=== PATIENT | male | born 1975 | race Caucasian/White ===

== ENCOUNTER 2018-09-27 09:22 | Outpatient (REF) | payer BC, SELFPAY ==
[2018-09-27 13:35] LABS: Anion Gap 8.2 mmol/L (3-11); BUN 18 mg/dL (7-18); CO2 27.8 mmol/L (21.0-32.0); CREATININE 0.94 mg/dL (0.70-1.30); Calcium 8.9 mg/dL (8.5-10.1); Chloride 103 mmol/L (98-107); Glucose 115 mg/dL (70-100); Potassium 4.8 mmol/L (3.5-5.1); Sodium 139 mmol/L (136-145)
== END 2018-09-27 09:42 ==
LOC: NCHCN 09:22
PROVIDERS: PCP Internal Medicine; Visit Provider Internal Medicine
DX: E87.5 Hyperkalemia (principal)
CPT/HCPCS: 80048

== ENCOUNTER 2019-04-10 22:14 | Outpatient (REF) | payer BC, SELFPAY ==
[2019-04-10 21:49] LABS: Abs Immature Grans 0.01 k/cumm (0.0-0.09); Absolute Basophil Count 0.03 k/cumm (0.0-0.2); Absolute Eosinophil Count 0.18 k/cumm (0.0-0.7); Absolute Lymphocyte Count 2.09 k/cumm (1.2-3.4); Absolute Monocyte Count 0.58 k/cumm (0.11-0.7); Absolute Neutrophil Count 3.78 k/cumm (1.2-6.7); Basophils % 0.4; Eosinophils % 2.7; HCT 47.5 % (40.0-50.0); HGB 16.1 g/dL (13.5-17.5); Immature Grans % 0.1; Lymphocytes % 31.3; Mean Corp. HGB Concentration 33.9 g/dL (32.0-36.0); Mean Corpuscular Hemoglobin 30.9 pg (27.0-33.0); Mean Corpuscular Volume 91.2 fL (80-95); Mean Platelet Volume 10.8 fL (8.0-11.0); Monocytes % 8.7; Neutrophils % 56.8; Platelet Count 215 x1000/uL (130-400); RBC 5.21 m/cumm (4.50-6.00); RBC Distribution Width 12.6 % (11.8-14.1); White Blood Cell Count 6.67 k/cumm (4.4-10.8)
[2019-04-10 22:27] LABS: ALT 58 U/L (12-78); AST 25 U/L (15-37); Albumin 4.1 g/dL (3.4-5.0); Alkaline Phosphatase 63 U/L (46-116); Anion Gap 10.2 mmol/L (3-11); BUN 15 mg/dL (7-18); Bilirubin, Total 0.8 mg/dL (0.2-1.0); CO2 24.8 mmol/L (21.0-32.0); CREATININE 0.91 mg/dL (0.70-1.30); Calcium 9.2 mg/dL (8.5-10.1); Calculated LDL 130; Chloride 102 mmol/L (98-107); Cholesterol 200 mg/dL (50-200); Glucose 98 mg/dL (70-100); HDL Cholesterol 48 mg/dL (40-60); Magnesium 2.1 mg/dL (1.8-2.4); Potassium 4.8 mmol/L (3.5-5.1); Sodium 137 mmol/L (136-145); TSH (W/Ref FT4) 0.87 uIU/mL (0.358-3.74); Triglyceride 110 mg/dL (30-150)
== END 2019-04-10 22:34 ==
LOC: NCHCN 22:14
PROVIDERS: PCP Internal Medicine; Visit Provider Specialist/Technologist Athletic Trainer
DX: R42 Dizziness and giddiness (principal)
CPT/HCPCS: 80053; 80061; 83721; 83735; 84443; 85025

== ENCOUNTER 2019-07-30 11:36 | Observation (INO) | payer BC, SELFPAY ==
[2019-07-30] VITALS (19 sets, daily range): BP systolic 128–150; BP diastolic 76–95; PULSE 65–88; RESP 12–23; TEMP 36.5–36.9; O2SAT 93–99
--- NOTE | 2019-07-30 11:52 | DI.RAD_ITS ---
EXAM: XR CHEST 2V PA LATERAL INDICATION: chest pain. COMPARISON: CHEST 2 VIEWS PA,LAT from 12/04/2017 TECHNIQUE: 2D digital imaging was performed. FINDINGS: The heart size is normal. The lungs reasonably clear. Infiltrate, or pneumothorax is seen. IMPRESSION: Negative chest x-ray.
[2019-07-30] MEDS: Aspirin 81 MG CHEW 324 MG CH (11:58)
[2019-07-30 12:07] LABS: Abs Immature Grans 0.03 k/cumm (0.0-0.09); Absolute Basophil Count 0.03 k/cumm (0.0-0.2); Absolute Eosinophil Count 0.24 k/cumm (0.0-0.7); Absolute Lymphocyte Count 2.84 k/cumm (1.2-3.4); Absolute Monocyte Count 0.93 k/cumm (0.11-0.7); Absolute Neutrophil Count 5.13 k/cumm (1.2-6.7); Basophils % 0.3; Eosinophils % 2.6; HCT 42.8 % (40.0-50.0); HGB 14.7 g/dL (13.5-17.5); Immature Grans % 0.3; Lymphocytes % 30.9; Mean Corp. HGB Concentration 34.3 g/dL (32.0-36.0); Mean Corpuscular Hemoglobin 31.2 pg (27.0-33.0); Mean Corpuscular Volume 90.9 fL (80-95); Mean Platelet Volume 10.2 fL (8.0-11.0); Monocytes % 10.1; Neutrophils % 55.8; Platelet Count 232 x1000/uL (130-400); RBC 4.71 m/cumm (4.50-6.00); RBC Distribution Width 12.4 % (11.8-14.1)
[2019-07-30 12:25] LABS: ALT 48 U/L (16-63); AST 19 U/L (15-37); Albumin 3.9 g/dL (3.4-5.0); Alkaline Phosphatase 64 U/L (46-116); Anion Gap 9.3 mmol/L (3-11); BUN 17 mg/dL (7-18); Bilirubin, Total 0.7 mg/dL (0.2-1.0); CO2 26.7 mmol/L (21.0-32.0); CREATININE 1.05 mg/dL (0.70-1.30); Calcium 8.3 mg/dL (8.5-10.1); Chloride 102 mmol/L (98-107); Glucose 141 mg/dL (70-100); Magnesium 1.9 mg/dL (1.8-2.4); Sodium 138 mmol/L (136-145); Total Protein 7.2 g/dL (6.4-8.2)
[2019-07-30 12:26] LABS: Troponin I < 0.05 ng/mL (0.00-0.06)
--- NOTE | 2019-07-30 12:52 | W.ED.GENAD ---
Discharge Plan Disposition Patient Disposition: [facility] INPATIENT Condition: Stable Discharge Details Chief Complaint: Chest Pain Clinical Impression: Chest pain, exertional Admit Date/Time: 07/30/19 13:08 Admit Provider: Dorothy Gastelum Attending Provider: Dorothy Gastelum Primary Care Provider: Joselo Vega ED Provider: Rosa Crowley Medical Decision Making <WANDA Baxter - Last Filed: 07/30/19 16:37> 43-year-old man who presents for exertional chest pain associated with dizziness, fatigue and shortness of breath during episodes of chest pain. Patient reports chest pain is relieved at rest. Patient reports 4 days of exertional chest pain reported associated with fatigue recently. Patient was noted to have a new left bundle branch block on his EKG noted by his primary care doctor in the last few months for which he was evaluated in [place] with an echocardiogram. Patient reports there were no abnormalities identified. Records attempting to be obtained from [place]. Patient denies having a recent stress test. Patient does report a significant cardiac family history. Patients father had multiple heart attacks early in life and at age 50. Patient is a personal history of hypertension is on 2 medications and blood pressure is now well controlled. Patient reports a former smoking history. Quit greater than 10 years ago. Denies any drug use. Patient's EKG continues to show a left Bundle branch block without an obvious ischemic pattern. Patient's EKG compared to previous in March and is unchanged. Reviewed with my attending Ken Montoya. Patient's initial troponin negative, initial labs are normal no leukocytosis. Given patient's exertional chest pain and left bundle branch block which is new this year he feels appropriate to admit this patient to the hospital at this time for further evaluation specifically for stress testing. I spoke with the hospitalist Dr. Gastelum who agrees with plan of admission to the hospital. <Ken Montoya MD - Last Filed: 07/30/19 20:56> 13:40 --I saw and evaluate this patient with WANDA Barrett. Please see WANDA Barrett's note regarding ED presentation and course. ECG was reviewed and interpreted by me: Sinus rhythm 84 bpm, left bundle branch block, appropriately disc concordant. Compared to old ECG from 04/10/2019 and patient had left bundle branch block at that time. Initial troponin negative. Agree with concern for ACS, unstable angina plan to admit for further diagnostics and treatment. Patient was given full dose aspirin. WANDA Barrett to admit to Dr. Gastelum. HPI <WANDA Baxter - Last Filed: 07/30/19 16:37> General Date/Time Provider Initiated Documentation: 07/30/19 11:37. HPI Narrative: 43-year-old very pleasant man who presents to the ER this morning after exertional chest pain when moving tires. Patient report for the last 4 days he has noted exertional chest pain at home with activity. Patient reports chest pain does improve at rest. Patient reports associated shortness of breath during episodes of chest pain. Patient reports chest pain approximately 4 out of 10 this morning. Patient reports mild dizziness associated. No palpitations. No vomiting associated. Patient denies abdominal pain or bowel changes. No recent upper respiratory symptoms. Patient denies any obvious chest injury or trauma. Pain is not reproducible with range of motion. No medications prior to arrival. Onset of symptoms 1 hour ago. Worse with exertion improved with rest. Chest pain noted mid anterior chest without radiation to back neck or arm. Related Data Home Medications Medication Instructions Recorded Confirmed metoprolol tartrate 12.5 mg PO BID 12/02/17 07/30/19 sertraline 100 mg PO DAILY 12/02/17 07/30/19 clobetasol 0.05 % topical cream 1 applic TP DAILY gm 12/20/18 07/30/19 clonazepam 0.5 mg tablet 0.5 mg PO PRN tab 12/20/18 07/30/19 spironolactone 25 mg tablet 12.5 mg PO DAILY 12/20/18 07/30/19 Allergies Allergy/AdvReac Type Severity Reaction Status Date / Time No Known Allergies Allergy Unverified 03/13/19 14:23 General Stated Complaint: Chest Pain FLYNN: 3 Review of Systems <WANDA Baxter - Last Filed: 07/30/19 16:37> Review of Systems ROS Unobtainable: All systems reviewed & are unremarkable except as noted in HPI and below Constitutional Constitutional: Denies chills, Reports fatigue, Denies fever(s) and Denies headache(s) ENT Ears, Nose, Mouth, and Throat: Denies headache(s) Cardiovascular Cardiovascular: Reports chest pain, Denies chest pain at rest, Reports chest pain with activity, Denies rapid heart rate, Denies pedal edema and Denies palpitations Respiratory Respiratory: Denies cough and Denies wheezing Gastrointestinal Gastrointestinal: Denies abdominal pain, Denies diarrhea and Denies vomiting Neurologic Neurologic: Denies headache(s) Endocrine Endocrine: Reports fatigue and Denies palpitations Allergic/Immunologic Allergic/Immunologic: Denies wheezing PFSH <WANDA Baxter - Last Filed: 07/30/19 16:37> Medical History HTN (hypertension) (Chronic) Panic disorder (Acute) Venous insufficiency (Acute) Vision loss, 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 Family History (Updated 07/30/19 @ 17:46 by Mery Jesus NP) Father Cancer Agent orange exposure Heart disease Multiple MIs, at age 50 Mother Cancer COPD (chronic obstructive pulmonary disease) Social History Smoking/Tobacco Use Status: Former Tobacco Use Quit Date: 11/22/03 Alcohol Intake: current Alcohol Intake frequency: 0-2 drinks per day Drug use: Never Substance use type: does not use current occupation: [employer] employee Do you feel safe in your relationship?: Yes Exam <WANDA Baxter - Last Filed: 07/30/19 16:37> Narrative Exam Narrative: CONST: Healthy appearing patient, in no acute distress. Well hydrated. Alert and alert. HENMT: Head nomocephalic, normal to inspection. Atraumatic. Hearing grossly normal. EYES: General normal appearance. Alignment normal. Eyelids normal. Conjunctiva normal. NECK: Normal visual inspection. FROM. Trachea midline. No Midline tenderness. CHEST: Normal insepection of the chest. RESP: Normal respiratory effort. Speaking full sentences. No cough. No audible wheezing. No retractions. CARDIO: No JVD. No murmurs or rubs. Regular rhythm MUSCULOSKELETAL: Normal Gait. FROM of all extremities. SKIN: Normal. Dry. No rashes. NEURO: Alert and awake. Speech clear. PSYCH: Normal affect. Cooperative. Course <WANDA Baxter - Last Filed: 07/30/19 16:37> Vital Signs Vital signs: Vital Signs Temperature 36.5 C 07/30/19 11:39 Pulse 88 07/30/19 11:39 Respiratory Rate 16 07/30/19 11:39 Blood Pressure 132/76 07/30/19 11:39 Pulse Oximetry 99 07/30/19 11:39 Temperature 36.5 C 07/30/19 11:39 Pulse 88 07/30/19 11:39 Respiratory Rate 16 07/30/19 11:53 Respiratory Effort Non-Labored 07/30/19 11:53 Respiratory Depth Normal 07/30/19 11:53 Respiratory Pattern Normal 07/30/19 11:53 Blood Pressure 132/76 07/30/19 11:39 Blood Pressure Position Supine 07/30/19 11:39 Pulse Oximetry 99 07/30/19 11:39 Oxygen Delivery Method Room Air 07/30/19 11:39 Oxygen Flow Rate 0 07/30/19 11:39 Pain Level 2 07/30/19 11:39 Lab/Test Results Lab/Test Results: Laboratory Tests Range/Units 07/30/19 07/30/19 11:46 11:46 WBC (4.4-10.8) k/cumm 9.20 RBC (4.50-6.00) m/cumm 4.71 Hgb (13.5-17.5) g/dL 14.7 Hct (40.0-50.0) % 42.8 MCV (80-95) fL 90.9 MCH (27.0-33.0) pg 31.2 MCHC (32.0-36.0) g/dL 34.3 RDW (11.8-14.1) % 12.4 Plt Count (130-400) x1000/uL 232 MPV (8.0-11.0) fL 10.2 Immature Gran % 0.3 Neutrophils % 55.8 Lymphocytes % 30.9 Monocytes % 10.1 Eosinophils % 2.6 Basophils % 0.3 Absolute Neutrophils (1.2-6.7) k/cumm 5.13 Absolute Lymphocytes (1.2-3.4) k/cumm 2.84 Absolute Monocytes (0.11-0.7) k/cumm 0.93 H Absolute Eosinophils (0.0-0.7) k/cumm 0.24 Absolute Basophils (0.0-0.2) k/cumm 0.03 Sodium (136-145) mmol/L 138 Potassium (3.5-5.1) mmol/L 4.0 Chloride (98-107) mmol/L 102 Carbon Dioxide (21.0-32.0) mmol/L 26.7 Anion Gap (3-11) mmol/L 9.3 BUN (7-18) mg/dL 17 Creatinine (0.70-1.30) mg/dL 1.05 Estimated GFR/1.73 m2 (mL/min/1.73m2) >= 60.00 Glucose (70-100) mg/dL 141 H Calcium (8.5-10.1) mg/dL 8.3 L Magnesium (1.8-2.4) mg/dL 1.9 Total Bilirubin (0.2-1.0) mg/dL 0.7 AST (15-37) U/L 19 ALT (16-63) U/L 48 Alkaline Phosphatase (46-116) U/L 64 Troponin I (0.00-0.06) ng/mL < 0.05 Total Protein (6.4-8.2) g/dL 7.2 Albumin (3.4-5.0) g/dL 3.9
--- NOTE | 2019-07-30 13:42 | NUR.NOTE ---
Nursing Note: report given to Ericka OBRIEN
[2019-07-30 13:51] LABS: Bilirubin Negative (Negative); Blood Negative (Negative); Clarity Clear (Clear); Glucose Negative (Negative); Ketones Negative (Negative); Leukocyte Esterase Negative (Negative); Nitrite Negative (Negative); Specific Gravity <= 1.005 (1.005-1.025); Urobilinogen 0.2 EU/dL (Up TO 0.2)
[2019-07-30 13:59] LABS: Hemoglobin A1C 5.7 % (4.5-6.2)
[2019-07-30 14:01] LABS: *AMPHETAMINES SCREEN URINE Negative (Negative); *BARBITURATES SCREEN URINE Negative (Negative); *BENZODIAZEPINES SCREEN URINE Negative (Negative); Cannabinoids THC Negative (Negative); Cocaine Screen,Urine Negative (Negative); METHADONE URINE SCREEN Negative (Negative); OPIATES URINE SCREEN Negative (Negative)
[2019-07-30 14:01] LABS: NT-proBNP 8 pg/mL
[2019-07-30 14:02] LABS: Tricyclic Antidepressants Negative (Negative)
[2019-07-30] MEDS: Enoxaparin 40 MG/0.4 ML SYR SC (14:18)
[2019-07-30] MEDS: Normal Saline 1,000 ML 150 ML IV ×2 (14:19→20:46)
[2019-07-30 15:19] LABS: Troponin I < 0.05 ng/mL (0.00-0.06)
--- NOTE | 2019-07-30 17:31 | HPE_ITS ---
Date of service: 07/30/19 Time of Service: 17:31 Assessment and Plan Assessment and plan (1) Chest pain: Status: Acute Assessment and plan: Exertional chest pain with associated shortness of breath and diaphoresis, relieved with rest. EKG shows LBBB. TTE from [facility] 04/2019 shows bundle branch rhtyhm during exam, LV normal in size, wall motion normal, LVEF 57%, trace mitral regurgitation, trace tricuspid regurgitation. Troponins x2. Concerning family history with father having CT at age 42 with multiple MIs following. Currently chest pain free. Continue to trend troponin. Stress test tomorrow. NPO after midnight. Monitor on telemetry. (2) HTN (hypertension): Status: Chronic Assessment and plan: Continue Metoprolol and aldactone at HS per home regimen. Monitor blood pressure. (3) Panic disorder: Status: Acute Assessment and plan: States only rarely uses klonopin, will order home PRN dose. (4) Discharge planning issues: Status: Acute Assessment and plan: He is in for a stress test tomorrow. Disposition to be determined after stress test. This case was discussed with Dr. Gastelum who is in agreement. History of Present Illness History of Present Illness Chief Complaint: Chest pain with exertion Narrative: Saw Salmeron is a very pleasant 43-year-old man with a past medical history significant for hypertension, also with an approximate [id number] smoking history, quit in 2003. He presented to the emergency department today with chest pain with exertion as well as an associated feeling of dizziness, shortness of breath and diaphoresis. He began having these episodes approximately 4 days ago, the chest pain is only with exertion. The chest pain resolved with rest. He also reports that his father had his first CT at age 42, he went on to have several MIs and at the age of 50, cardiac related. Mr. Salmeron was also recently seen by cardiology after his PCP made note of a new LBBB on EKG. He had an echocardiogram in 04/2019 at [facility] which was reported to him as normal. In the ED, he had an EKG which again noted LBBB, NSR, rate 84 bpm. His troponin was negative x2. He is admitted to the med/surg floor for further evaluation, monitoring on telemetry, trending troponins and stress testing tomorrow. At the time of admission, he also reports that he has been increasingly fatigued over the last 4 days. When he experienced the exertional chest pain, the pain radiated into his left shoulder. He denies nausea or vomiting. He denies any other concerns, no coughing or wheezing, he has been eating and drinking normally. He has otherwise been in his usual state of health. He has had no significant changes or stressors in his life. He quit smoking in 2003 after smoking about 1 ppd x 10 years. He drinks alcohol regularly, he has never had withdrawal. 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 Family History (Updated 07/30/19 @ 17:46 by Mery Jesus NP) Father Cancer Agent orange exposure Heart disease Multiple MIs, at age 50 Mother Cancer COPD (chronic obstructive pulmonary disease) Social History Smoking/Tobacco Use Status: Former Tobacco Use Quit Date: 11/22/03 Alcohol Intake: current Alcohol Intake frequency: 0-2 drinks per day Drug use: Never Substance use type: does not use current occupation: [employer] employee Do you feel safe in your relationship?: Yes Meds Home Medications and Allergies Home Medications Medication Instructions Recorded Confirmed Type metoprolol tartrate 12.5 mg PO BID 12/02/17 07/30/19 History sertraline 100 mg PO DAILY 12/02/17 07/30/19 History clobetasol 0.05 % topical cream 1 applic TP DAILY gm 12/20/18 07/30/19 History clonazepam 0.5 mg tablet 0.5 mg PO PRN tab 12/20/18 07/30/19 History spironolactone 25 mg tablet 12.5 mg PO DAILY 12/20/18 07/30/19 History Allergies Allergy/AdvReac Type Severity Reaction Status Date / Time No Known Allergies Allergy Unverified 03/13/19 14:23 Exam Narrative Exam Narrative: General: Healthy appearing 43 year old man, in NAD. Awake, alert and oriented. HEENT: normocephalic, atraumatic, pupils equal and round, EOMI, mucous membranes moist. Neck: supple, no JVD. Cardiovascular: regular rhythm, nontachycardic, no murmur appreciated. Respiratory: respirations even and unlabored, lung sounds clear bilaterally. GI: abdomen soft, nontender, +bowel sounds x4 quadrants. Extremities: no edema, equal ROM x4 extremities. pedal pulses palpable bilaterally. Results Labs Result diagrams: 07/30/19 11:46 07/30/19 11:46 Labs: Laboratory Results - last 24 hr 07/30/19 07/30/19 07/30/19 11:46 11:46 11:46 WBC 9.20 RBC 4.71 Hgb 14.7 Hct 42.8 MCV 90.9 MCH 31.2 MCHC 34.3 RDW 12.4 Plt Count 232 MPV 10.2 Immature Gran % 0.3 Neutrophils % 55.8 Lymphocytes % 30.9 Monocytes % 10.1 Eosinophils % 2.6 Basophils % 0.3 Absolute Neutrophils 5.13 Absolute Lymphocytes 2.84 Absolute Monocytes 0.93 H Absolute Eosinophils 0.24 Absolute Basophils 0.03 PT INR Sodium 138 Potassium 4.0 Chloride 102 Carbon Dioxide 26.7 Anion Gap 9.3 BUN 17 Creatinine 1.05 Estimated GFR/1.73 m2 >= 60.00 Glucose 141 H Hemoglobin A1c 5.7 Calcium 8.3 L Magnesium 1.9 Total Bilirubin 0.7 AST 19 ALT 48 Alkaline Phosphatase 64 Troponin I < 0.05 NT-Pro-B Natriuret Pep 8 Total Protein 7.2 Albumin 3.9 Urine Color Urine Clarity Urine pH Ur Specific [place] Urine Protein Urine Ketones Urine Blood Urine Nitrite Urine Bilirubin Urine Urobilinogen Ur Leukocyte Esterase Urine Glucose Urine Opiates Screen Urine Methadone Screen Ur Barbiturates Screen Ur Tricyclics Screen Ur Amphetamines Screen U Benzodiazepines Scrn Urine Cocaine Screen Ur THC Screen 07/30/19 07/30/19 07/30/19 13:30 13:30 13:45 WBC RBC Hgb Hct MCV MCH MCHC RDW Plt Count MPV Immature Gran % Neutrophils % Lymphocytes % Monocytes % Eosinophils % Basophils % Absolute Neutrophils Absolute Lymphocytes Absolute Monocytes Absolute Eosinophils Absolute Basophils PT 10.0 INR 1.0 Sodium Potassium Chloride Carbon Dioxide Anion Gap BUN Creatinine Estimated GFR/1.73 m2 Glucose Hemoglobin A1c Calcium Magnesium Total Bilirubin AST ALT Alkaline Phosphatase Troponin I NT-Pro-B Natriuret Pep Total Protein Albumin Urine Color Yellow Urine Clarity Clear Urine pH 6.0 Ur Specific [place] <= 1.005 Urine Protein Negative Urine Ketones Negative Urine Blood Negative Urine Nitrite Negative Urine Bilirubin Negative Urine Urobilinogen 0.2 Ur Leukocyte Esterase Negative Urine Glucose Negative Urine Opiates Screen Negative Urine Methadone Screen Negative Ur Barbiturates Screen Negative Ur Tricyclics Screen Negative Ur Amphetamines Screen Negative U Benzodiazepines Scrn Negative Urine Cocaine Screen Negative Ur THC Screen Negative 07/30/19 14:55 WBC RBC Hgb Hct MCV MCH MCHC RDW Plt Count MPV Immature Gran % Neutrophils % Lymphocytes % Monocytes % Eosinophils % Basophils % Absolute Neutrophils Absolute Lymphocytes Absolute Monocytes Absolute Eosinophils Absolute Basophils PT INR Sodium Potassium Chloride Carbon Dioxide Anion Gap BUN Creatinine Estimated GFR/1.73 m2 Glucose Hemoglobin A1c Calcium Magnesium Total Bilirubin AST ALT Alkaline Phosphatase Troponin I < 0.05 NT-Pro-B Natriuret Pep Total Protein Albumin Urine Color Urine Clarity Urine pH Ur Specific [place] Urine Protein Urine Ketones Urine Blood Urine Nitrite Urine Bilirubin Urine Urobilinogen Ur Leukocyte Esterase Urine Glucose Urine Opiates Screen Urine Methadone Screen Ur Barbiturates Screen Ur Tricyclics Screen Ur Amphetamines Screen U Benzodiazepines Scrn Urine Cocaine Screen Ur THC Screen Last Vital Signs Temp 36.8 C 07/30/19 15:29 Pulse 67 07/30/19 15:45 Resp 18 07/30/19 15:29 BP 133/81 07/30/19 15:29 Pulse Ox 98 07/30/19 15:29
--- NOTE | 2019-07-30 18:45 | NUR.NOTE ---
Nursing Note: Pt to MS floor at 1350. A&Ox3. Independent in room; steady gait noted. Pt oriented to MS floor, call edgar, TV etc. Telemetry. Call edgar within reach. RN will continue to monitor.
[2019-07-30] MEDS: Sertraline 50 MG TAB 100 MG PO (21:18)
[2019-07-30] MEDS: Spironolactone 25 MG TAB 12.5 MG PO (21:18)
[2019-07-30] MEDS: Metoprolol 25 MG TAB PO (21:19)
[2019-07-30 21:45] LABS: Troponin I < 0.05 ng/mL (0.00-0.06)
[2019-07-31] VITALS (10 sets, daily range): BP systolic 140–159; BP diastolic 75–103; PULSE 65–80; RESP 14–18; TEMP 36.6–36.9; O2SAT 94–97
[2019-07-31] MEDS: Normal Saline 1,000 ML 150 ML IV ×2 (03:16→09:48)
[2019-07-31 07:15] LABS: HCT 41.5 % (40.0-50.0); Mean Corp. HGB Concentration 33.7 g/dL (32.0-36.0); Mean Corpuscular Hemoglobin 30.8 pg (27.0-33.0); Mean Corpuscular Volume 91.4 fL (80-95); Platelet Count 210 x1000/uL (130-400); RBC 4.54 m/cumm (4.50-6.00); RBC Distribution Width 12.4 % (11.8-14.1); White Blood Cell Count 6.56 k/cumm (4.4-10.8)
[2019-07-31 07:36] LABS: Anion Gap 6.8 mmol/L (3-11); BUN 13 mg/dL (7-18); CO2 29.2 mmol/L (21.0-32.0); CREATININE 0.96 mg/dL (0.70-1.30); Calcium 7.8 mg/dL (8.5-10.1); Calculated LDL 108 mg/dL; Chloride 107 mmol/L (98-107); Cholesterol 168 mg/dL (50-200); Glucose 104 mg/dL (70-100); HDL Cholesterol 40 mg/dL (40-60); Potassium 4.2 mmol/L (3.5-5.1); Sodium 143 mmol/L (136-145); TSH (W/Ref FT4) 1.26 uIU/mL (0.36-3.74); Triglyceride 102 mg/dL (30-150)
[2019-07-31 08:07] LABS: ESR 11 mm/hr (0-15)
--- NOTE | 2019-07-31 12:30 | DI.US_ITS ---
APPROVED REPORT EXAM: Comprehensive 2D, Doppler, and color-flow Echocardiogram Patient Location: In-Patient Tuberculosis Specialist: LEANN Donohue (AE) Rhythm: LBBB Indications: exertional CP w/ diaphoresis, family hx of early KS Left Ventricle The left ventricle is normal size. The left ventricular systolic function is normal. The left ventric ular ejection fraction is within the normal range. There is normal left ventricular wall thickness. P aradoxical septal motion consistent with conduction abnormality. The left ventricular diastolic funct ion is normal. LVEF is 55-60%. Right Ventricle The right ventricle is normal size. The right ventricular systolic function is normal. Atria The left atrium size is normal. The right atrium size is normal. Aortic Valve The aortic valve is normal in structure. There is no aortic valvular stenosis. No aortic regurgitatio n is present. Mitral Valve There is mitral annular calcification. Valve is mildly thickened No evidence of mitral valve stenosis . There is no mitral valve regurgitation noted. Tricuspid Valve The tricuspid valve is normal in structure. Trace tricuspid regurgitation. Peak gradient =32.5 mmHg Pulmonic Valve The pulmonary valve is normal in structure. Trace pulmonic regurgitation. Great Vessels The aortic root is normal in size. The IVC is normal in size and collapses >50% with inspiration. Pericardium There is no pericardial effusion. 2D Dimensions IVSd 1.3 cm M: 0.6-1.2 LA Volume Index A4C 17.0 mL/m2 PWd 1.1 cm M: 0.6 - 1.2 LA Area A4C 14.0 cm2 LVDd 4.5 cm M: 4.2 - 5.9 LVDs 3.2 cm M: 2.5 - 4.0 Aortic Root 3.5 cm M: 3.1 - 3.7 LVOT 2.0 cm (M/F) 1.5-2.5 LVEF (Duque's) 62.6 % M: 52 - 72 FS 29.2 % LV Diastology E/A Ratio 1.1 MED E' 0.1 (<0.07 m/s) LV E/e MED 8.3 (>14) LAT E' 0.1 (<0.1 m/s) LV E/e LAT 8.5 (>14) Aortic Valve LVOT Peak Anton. 1.7 m/s LVOT Peak Gr. 11.0 mmHg LVOT Mean Gr. 5.8 mmHg LVOT VTI 0.3 m LEANN (VTI) 2.7 (2.5-4.5 cm2) LEANN (VTI) Index 1.3 cm/m2 Mitral Valve MV E Max Anton. 0.8 (0.4-1.3 m/s) MV A Velocity 0.7 (0.4-1.3 m/s) E/A Ratio 1.1 MV Decel. Time 167.0 (160-240 msec) MV PHT 48.3 msec MVA PHT 4.6 cm2 Tricuspid Valve TR P. Velocity 2.9 m/s TR P. Gradient 32.5 mmHg Conclusion Left Ventricle : The left ventricle is normal size. There is normal left ventricular wall thickness. The left ventricular diastolic function is normal. Paradoxical septal motion consistent with conducti on abnormality. LVEF is 55-60%. Right Ventricle : The right ventricle is normal size. The right ventricular systolic function is norm al. Atria : The left atrium size is normal. The right atrium size is normal. Aortic Valve : The aortic valve is normal in structure. There is no aortic valvular stenosis. No aor tic regurgitation is present. Mitral Valve : There is mitral annular calcification. Valve is mildly thickened There is no mitral v alve regurgitation noted. No evidence of mitral valve stenosis. Tricuspid Valve : The tricuspid valve is normal in structure. Trace tricuspid regurgitation. Peak gra dient =32.5 mmHg. RVSP is <40mmHg Pulmonic Valve : The pulmonary valve is normal in structure. Trace pulmonic regurgitation. Great Vessels : The IVC is normal in size and collapses >50% with inspiration. Pericardium : There is no pericardial effusion.
[2019-07-31] MEDS: Enoxaparin 40 MG/0.4 ML SYR SC (14:30)
[2019-07-31] MEDS: Normal Saline Flush 10 ML SYR IVP (14:34)
--- NOTE | 2019-07-31 14:40 | INITIAL_ITS ---
- If Service Date Differs Date of service: 07/31/19 Time of Service: 14:40 Care Management Initial Assess REASON FOR HOSPITALIZATION:: Chest Pain PAST MEDICAL HISTORY/PAST SURGICAL HISTORY:: Medical History. HTN (hypertension) (Chronic). Panic disorder (Acute). Venous insufficiency (Acute). 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 He has a daughter who is in college at [employer] studying to be a dental hygienist, and he is very proud of her. 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 He is very independent at baseline. CURRENT FUNCTIONAL STATUS:: Saw was lying in his bed when CM met with him. He was pleasant and engaged in conversation. He reported that he is waiting for testing today to check his heart. He is agreeable to the plan and anxious to find out what is happening to him, medically. CM will continue to follow. ADVANCE DIRECTIVES:: None on file. Has patient been provided with information about the portal?: Yes Did the patient sign up for the portal?: No CODE STATUS:: Full Code INSURANCE COVERAGE / FINANCIAL ISSUES:: [employer]BS CURRENT HOME/COMMUNITY SERVICES/EQUIPMENT:: No services or equipment at this time. PRIMARY CARE PHYSICIAN:: Joselo Vega POTENTIAL DISCHARGE NEEDS:: Evaluations for further needs, follow up appointments as recommended PATIENT/FAMILY EDUCATION NEEDS:: Review of community based supports, discharge plan, discussion of self care needs upon discharge including Ask Me Three ANTICIPATED BARRIERS TO DISCHARGE:: None identified TRANSPORTATION:: Saw will drive himself as long as he is medically cleared to drive via private vehicle. PLAN:: Anticipate Saw will return home with no additional services when medically cleared. He will have follow up appointments as recommended by MD. He will drive himself as long as he is medically cleared to drive. CM will continue to follow.
--- NOTE | 2019-07-31 15:35 | PGE_ITS ---
Date of Service Date of service: 07/31/19 Time of Service: 15:35 Assessment and Plan Assessment and plan (1) Chest pain: Status: Acute Assessment and plan: Exertional chest pain with associated shortness of breath and diaphoresis, relieved with rest. EKG shows LBBB. TTE from [facility] 04/2019 shows bundle branch rhtyhm during exam, LV normal in size, wall motion normal, LVEF 57%, trace mitral regurgitation, trace tricuspid regurgitation. Repeat echocardiogram pending. Stress testing not available today. Troponins negative x3. Concerning family history with father having UT at age 42 with multiple MIs following. Currently chest pain free. Telemetry showing normal sinus rhythm with a left bundle branch block, rates 60s to 80. Stress test tomorrow. NPO after midnight. Continue to monitor on telemetry. (2) HTN (hypertension): Status: Chronic Assessment and plan: Continue Metoprolol and aldactone at HS per home regimen. Monitor blood pressure. (3) Panic disorder: Status: Acute Assessment and plan: States only rarely uses klonopin, will order home PRN dose. (4) Discharge planning issues: Status: Acute Assessment and plan: He is in for a stress test tomorrow. Disposition to be determined after stress test. This case was discussed with Dr. Gastelum who is in agreement. Subjective Subjective Interval history since last seen: Saw Salmeron denies chest pain since he has been in the hospital. He underwent an echocardiogram today for comparison to his previous echo. Telemetry shows normal sinus rhythm with a left bundle branch block, rates 60s to 80. The results are pending. At this time he denies chest pain/pressure, palpitations, shortness of breath, coughing, wheezing, nausea, vomiting, diarrhea. Given his history of exertional chest pain with shortness of breath and progressing to diaphoresis, in the setting of a family history of early cardiac events, he will remain in the hospital until stress testing is available. He is scheduled to have a stress test tomorrow. Exam Narrative Exam Narrative: General: Healthy appearing 43 year old man, sitting up in the chair in NAD. Awake, alert and oriented. HEENT: normocephalic, atraumatic, pupils equal and round, EOMI, mucous membranes moist. Neck: supple, no JVD. Cardiovascular: regular rhythm, nontachycardic, no murmur appreciated. Respiratory: respirations even and unlabored, lung sounds clear bilaterally. GI: abdomen soft, nontender, +bowel sounds x4 quadrants. Extremities: no edema, equal ROM x4 extremities. pedal pulses palpable bilaterally. Objective Objective Clinical Data: Abnormal lab results 07/31/19 Range/Units 06:40 Glucose 104 H (70-100) mg/dL Calcium 7.8 L (8.5-10.1) mg/dL Vital Signs Temperature 36.9 C 07/31/19 11:20 Temperature Source Tympanic 07/31/19 11:20 Pulse 73 07/31/19 11:20 Pulse Rhythm Regular 07/31/19 08:52 Pulse 80 07/30/19 13:15 Respiratory Rate 16 07/31/19 11:20 Respiratory Effort Non-Labored 07/31/19 08:52 Respiratory Depth Normal 07/31/19 08:52 Respiratory Pattern Normal 07/31/19 08:52 Blood Pressure 154/103 H 07/31/19 11:20 Blood Pressure Mean 95 07/30/19 13:15 Blood Pressure Position Supine 07/30/19 11:39 Pulse Oximetry 97 07/31/19 11:20 Oxygen Delivery Method Room Air 07/31/19 11:20 Oxygen Flow Rate 0 07/31/19 11:20 Pain Level 0 07/31/19 11:20 Comment 07/31/19 07:30 Intake & Output 07/30/19 07/31/19 07/31/19 23:59 11:59 23:59 Intake Total 1757.5 / 1757.5 1954 Balance 1757.5 / 1757.5 1954 Weight 99.79 kg 101.7 kg Intake: IV 967.5 / 967.5 1954 Oral 790 / 790 Other: Urine Color Pale Pale Yellow Urine Appearance Clear Clear Urine Odor None None Comment Pt voiding ad aaron in toilet. Pt denies sx. No hat. Voiding Methods Toilet Toilet Laboratory Results WBC 6.56 k/cumm (4.4-10.8) 07/31/19 06:40 RBC 4.54 m/cumm (4.50-6.00) 07/31/19 06:40 Hgb 14.0 g/dL (13.5-17.5) 07/31/19 06:40 Hct 41.5 % (40.0-50.0) 07/31/19 06:40 MCV 91.4 fL (80-95) 07/31/19 06:40 MCH 30.8 pg (27.0-33.0) 07/31/19 06:40 MCHC 33.7 g/dL (32.0-36.0) 07/31/19 06:40 RDW 12.4 % (11.8-14.1) 07/31/19 06:40 Plt Count 210 x1000/uL (130-400) 07/31/19 06:40 MPV 10.0 fL (8.0-11.0) 07/31/19 06:40 Immature Gran % 0.3 07/30/19 11:46 Neutrophils % 55.8 07/30/19 11:46 Lymphocytes % 30.9 07/30/19 11:46 Monocytes % 10.1 07/30/19 11:46 Eosinophils % 2.6 07/30/19 11:46 Basophils % 0.3 07/30/19 11:46 Absolute Neutrophils 5.13 k/cumm (1.2-6.7) 07/30/19 11:46 Absolute Lymphocytes 2.84 k/cumm (1.2-3.4) 07/30/19 11:46 Absolute Monocytes 0.93 k/cumm (0.11-0.7) H 07/30/19 11:46 Absolute Eosinophils 0.24 k/cumm (0.0-0.7) 07/30/19 11:46 Absolute Basophils 0.03 k/cumm (0.0-0.2) 07/30/19 11:46 ESR 11 mm/hr (0-15) 07/31/19 06:40 PT 10.0 sec (9.3-11.0) 07/30/19 13:45 INR 1.0 (0.9-1.1) 07/30/19 13:45 Sodium 143 mmol/L (136-145) 07/31/19 06:40 Potassium 4.2 mmol/L (3.5-5.1) 07/31/19 06:40 Chloride 107 mmol/L (98-107) 07/31/19 06:40 Carbon Dioxide 29.2 mmol/L (21.0-32.0) 07/31/19 06:40 Anion Gap 6.8 mmol/L (3-11) 07/31/19 06:40 BUN 13 mg/dL (7-18) 07/31/19 06:40 Creatinine 0.96 mg/dL (0.70-1.30) 07/31/19 06:40 Estimated GFR/1.73 m2 >= 60.00 (mL/min/1.73m2) 07/31/19 06:40 Glucose 104 mg/dL (70-100) H 07/31/19 06:40 Hemoglobin A1c 5.7 % (4.5-6.2) 07/30/19 11:46 Calcium 7.8 mg/dL (8.5-10.1) L 07/31/19 06:40 Magnesium 2.0 mg/dL (1.8-2.4) 07/31/19 06:40 Total Bilirubin 0.7 mg/dL (0.2-1.0) 07/30/19 11:46 AST 19 U/L (15-37) 07/30/19 11:46 ALT 48 U/L (16-63) 07/30/19 11:46 Alkaline Phosphatase 64 U/L (46-116) 07/30/19 11:46 Troponin I < 0.05 ng/mL (0.00-0.06) 07/30/19 21:15 NT-Pro-B Natriuret Pep 8 pg/mL (-299) 07/30/19 11:46 Total Protein 7.2 g/dL (6.4-8.2) 07/30/19 11:46 Albumin 3.9 g/dL (3.4-5.0) 07/30/19 11:46 Triglycerides 102 mg/dL (30-150) 07/31/19 06:40 Total Cholesterol 168 mg/dL (50-200) 07/31/19 06:40 LDL Cholesterol, Calc 108 mg/dL 07/31/19 06:40 HDL Cholesterol 40 mg/dL (40-60) 07/31/19 06:40 TSH 1.26 uIU/mL (0.36-3.74) 07/31/19 06:40 Urine Color Yellow (Yellow) 07/30/19 13:30 Urine Clarity Clear (Clear) 07/30/19 13:30 Urine pH 6.0 (5-8) 07/30/19 13:30 Ur Specific [place] <= 1.005 (1.005-1.025) 07/30/19 13:30 Urine Protein Negative mg/dL (Negative) 07/30/19 13:30 Urine Ketones Negative mg/dL (Negative) 07/30/19 13:30 Urine Blood Negative (Negative) 07/30/19 13:30 Urine Nitrite Negative (Negative) 07/30/19 13:30 Urine Bilirubin Negative (Negative) 07/30/19 13:30 Urine Urobilinogen 0.2 EU/dL (Up TO 0.2) 07/30/19 13:30 Ur Leukocyte Esterase Negative (Negative) 07/30/19 13:30 Urine Glucose Negative mg/dL (Negative) 07/30/19 13:30 Urine Opiates Screen Negative (Negative) 07/30/19 13:30 Urine Methadone Screen Negative (Negative) 07/30/19 13:30 Ur Barbiturates Screen Negative (Negative) 07/30/19 13:30 Ur Tricyclics Screen Negative (Negative) 07/30/19 13:30 Ur Amphetamines Screen Negative (Negative) 07/30/19 13:30 U Benzodiazepines Scrn Negative (Negative) 07/30/19 13:30 Urine Cocaine Screen Negative (Negative) 07/30/19 13:30 Ur THC Screen Negative (Negative) 07/30/19 13:30
[2019-07-31] MEDS: Normal Saline 1,000 ML 100 ML IV (17:57)
[2019-07-31] MEDS: Spironolactone 25 MG TAB 12.5 MG PO (21:20)
[2019-07-31] MEDS: Metoprolol 25 MG TAB PO (21:21)
[2019-07-31] MEDS: Sertraline 50 MG TAB 100 MG PO (21:21)
[2019-08-01] VITALS (8 sets, daily range): BP systolic 145–166; BP diastolic 81–98; PULSE 60–73; RESP 17–20; TEMP 36.2–36.8; O2SAT 96–97
[2019-08-01] MEDS: Normal Saline 1,000 ML 100 ML IV (03:38)
[2019-08-01] MEDS: Regadenoson 0.4 MG/5 ML SYR IVP (12:45)
--- NOTE | 2019-08-01 13:03 | PHARADMIT ---
Admission Pharmacy Clinical Review Code Status Full Code Current Weight 100.1 kg Renally Cleared and Narrow Therapeutic Index Meds CrCl ~94 QTc Value / Action Taken QTc 433 BP Control, Fever BP 166/98, afebrile Electrolytes reviewed all WNL DVT Prophylaxis LMWH 40MG Opiate Usage / Scheduled Bowel Regimen Ordered None Plt/SCr for Heparin / Enoxaparin Plt 210, Scr 0.96 INR for Warfarin H/H stable, WBC/Bands H/H 14/41.5, Scr 0.96 Antibiotic appropriateness Cultures and Sensitivities Surgical ABX d/c within 24 hr DM control / Insulin Dosing Heart Failure (Check EF%) (NOLA's, B-Block, Diuretics) Metoprolol, spironolactone IV to PO Switch n/a Home Meds Reviewed Yes, all ok Home Meds Not Ordered all ordered Comments Family hx of SC at young age Stress test today
[2019-08-01] MEDS: Normal Saline Flush 10 ML SYR IVP (14:18)
[2019-08-01] MEDS: Enoxaparin 40 MG/0.4 ML SYR SC (14:18)
--- NOTE | 2019-08-01 15:11 | W.PM.DS.N ---
Date of service: 08/01/19 Time of Service: 15:11 DS: Diagnosis Discharge Diagnosis (1) Chest pain: Status: Acute (2) HTN (hypertension): Status: Chronic (3) Panic disorder: Status: Acute (4) Discharge planning issues: Status: Acute Discharge Plan Disposition Condition: Stable Discharge Details Chief Complaint: Chest Pain Clinical Impression: Chest pain, exertional Reason For Visit: EXERTIONAL CHEST PAIN Admit Date/Time: 07/30/19 13:08 Admit Provider: Dorothy Gastelum Attending Provider: Dorothy Gastelum Primary Care Provider: Joselo Vega ED Provider: Rosa Crowley Hospital Course Hospital Course: Saw Salmeron is a very pleasant 43-year-old man with a past medical history significant for hypertension, also with an approximate [id number] smoking history, quit in 2003. He presented to the emergency department on 07/30/2019 reporting a 4 day history of chest pain with exertion as well as an associated feeling of dizziness, shortness of breath and diaphoresis. The chest pain resolved with rest. He also reports that his father had his first OK at age 42, he went on to have several MIs and at the age of 48, cardiac related. Mr. Salmeron was also recently seen by cardiology after his PCP made note of a new LBBB on EKG. At the time of his admission his EKG showed normal sinus rhythm with a left bundle branch block, heart rate of 84. His troponin was negative x3. He was scheduled for a stress test on 07/31/2019, however, stress testing was not available at this facility yesterday. He had an echocardiogram on 07/31/2019 which showed paradoxical septal motion consistent with conduction abnormality, he was noted to have a left bundle branch block throughout the study, LVEF was 55 to 60%, trace tricuspid regurgitation. He was monitored on telemetry which showed heart rates as low as the 40s while asleep and is high as 80 bpm, normal sinus rhythm with left bundle branch block. He went on to have an MPI today, 08/01/2019, which was reviewed by Dr. Vasquez, Cardiology, and noted to be positive with a large, severe, reversible defect on the entire anterior and septal duran likely representing ischemia in the LAD territory. Cardiology recommends cardiac catheterization. He was symptomatic during the stress test. He received aminophylline and his symptoms resolved. He remains chest pain-free at rest. He was given Aspirin 325mg PO and place on a heparin drip at the direction of [facility] cardiology. He has been accepted in transfer to [facility] for cardiac catheterization. He is accepted by Dr. Fuller. He will transfer via ambulance. Home Meds and New Rx's Prescriptions: No Action clonazepam 0.5 mg tablet 0.5 mg PO PRN RF: 0 clobetasol 0.05 % cream 1 applic TP DAILY RF: 0 spironolactone 25 mg tablet 12.5 mg PO DAILY RF: 0 sertraline 100 MG tablet 100 mg PO DAILY RF: 0 metoprolol tartrate 12.5 MG tablet 12.5 mg PO BID RF: 0 Discharge Instructions Instructions: Chest Pain (DC) Stand Alone Forms: Nursing Discharge Form Referrals: Joselo Vega MD [Primary Care Provider] - 08/12/19 8:55 am DS: Summary Status at Discharge Functional status at discharge: independent ambulation Overall status at discharge: patient is not back to baseline Mental Status: mental status grossly normal Speech and Movement: speech and movement normal Mood: congruent mood Affect: normal affect Exam Narrative Exam Narrative: General: Healthy appearing 43 year old man, sitting up in bed in [facility]. Awake, alert and oriented. HEENT: normocephalic, atraumatic, pupils equal and round, EOMI, mucous membranes moist. Neck: supple, no JVD. Cardiovascular: regular rhythm, nontachycardic, no murmur appreciated. Respiratory: respirations even and unlabored, lung sounds clear bilaterally. GI: abdomen soft, nontender, +bowel sounds x4 quadrants. Extremities: no edema, equal ROM x4 extremities. pedal pulses palpable bilaterally. Psych Mental Status: mental status grossly normal Speech and Movement: speech and movement normal Mood: congruent mood Affect: normal affect DS: Data Vitals/I&O Vitals and I&O: Vital Signs Temperature 36.2 C L 08/01/19 14:01 Temperature Source Tympanic 08/01/19 14:01 Pulse 72 08/01/19 14:01 Pulse Rhythm Regular 08/01/19 05:00 Pulse 80 07/30/19 13:15 Respiratory Rate 20 08/01/19 14:01 Respiratory Effort Non-Labored 08/01/19 05:00 Respiratory Depth Normal 08/01/19 05:00 Respiratory Pattern Normal 08/01/19 05:00 Blood Pressure 152/88 H 08/01/19 14:01 Blood Pressure Mean 95 07/30/19 13:15 Blood Pressure Position Supine 07/30/19 11:39 Pulse Oximetry 97 08/01/19 14:01 Oxygen Delivery Method Room Air 08/01/19 14:01 Oxygen Flow Rate 0 08/01/19 14:01 Pain Level 0 08/01/19 14:01 Comment 07/31/19 07:30 Intake & Output 07/31/19 08/01/19 08/01/19 23:59 11:59 23:59 Intake Total 1240 / 3195 968.333 / 2105.000 1136.667 / 2105.000 Balance 1240 / 3195 968.333 / 2105.000 1136.667 / 2105.000 Weight 100.1 kg Intake: IV 1000 / 2955 968.333 / 1805.000 836.667 / 1805.000 Oral 240 / 240 300 / 300 Other: Comment pt voiding ad aaron in toilet; urine not assessed at this time Voiding Methods Toilet Toilet Data Completed and Pending Completed studies during hospitalization [Text1]: 07/30/19: Exam(s) a RAD:XR chest 2V PA & lateral EXAM: XR CHEST 2V PA LATERAL INDICATION: chest pain. COMPARISON: CHEST 2 VIEWS PA,LAT from 12/04/2017 TECHNIQUE: 2D digital imaging was performed. FINDINGS: The heart size is normal. The lungs reasonably clear. Infiltrate, or pneumothorax is seen. IMPRESSION: Negative chest x-ray. 07/31/19: EXAM: Comprehensive 2D, Doppler, and color-flow Echocardiogram Patient Location: In-Patient Detective Homicide Squad: Nubia Saenz [facility] ([place]) Rhythm: LBBB Indications: exertional CP w/ diaphoresis, family hx of early OK Left Ventricle The left ventricle is normal size. The left ventricular systolic function is normal. The left ventricular ejection fraction is within the normal range. There is normal left ventricular wall thickness. Paradoxical septal motion consistent with conduction abnormality. The left ventricular diastolic function is normal. LVEF is 55-60%. Right Ventricle The right ventricle is normal size. The right ventricular systolic function is normal. Atria The left atrium size is normal. The right atrium size is normal. Aortic Valve The aortic valve is normal in structure. There is no aortic valvular stenosis. No aortic regurgitation is present. Mitral Valve There is mitral annular calcification. Valve is mildly thickened No evidence of mitral valve stenosis. There is no mitral valve regurgitation noted. Tricuspid Valve The tricuspid valve is normal in structure. Trace tricuspid regurgitation. Peak gradient =32.5 mmHg Pulmonic Valve The pulmonary valve is normal in structure. Trace pulmonic regurgitation. Great Vessels The aortic root is normal in size. The IVC is normal in size and collapses >50% with inspiration. Pericardium There is no pericardial effusion. 08/01/19: MPI Conclusion There is a large, severe, reversible defect on the entire anterior and septal duran likely representing ischemia in the LAD territory. Ejection fraction is between 40-45% There is no TID These imaging findings in addition to patient's significant symptoms dsuring stress correspond with a positive stress test. Recommendations: Patient should proceed with cardiac catheterization. This case was discussed with the hospitalist on-call. 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
[2019-08-01] MEDS: Aspirin 325 MG TAB PO (15:42)
--- NOTE | 2019-08-01 15:48 | DI.NM_ITS ---
APPROVED REPORT Exam: Pharmacologic Patient Location: In-Patient Room/Bed: 216 Stress Nurse: Moriah Lind RN Rhythm: LBBB Indications: Pt reports exertional chest pains described as a buring sensation across chest associa noah with diaphoresis and SOB. Medical History Medical History: Smoker:Unknown Prior Cath:Unknown Prior PCI:Unknown History of [place]:Unknown Heart Fail ure:Unknown Prior CABG:Unknown Prior Heart Valve Surgery:Unknown Diabetic:Unknown Angina:Unknown Fami ly History of CV Disease:Unknown History Notes: Medications: Spironaldactone. Clonazepam. Metoprolol tartrate. Allergies: No known drug allergies Cardiac Risk Factors: HTN, Smoking Pretest Chest Pain Characteristics: Exertional Chest pain Exercise History: Physically active Stress Test Details Test: Pharmacologic stress testing performed using 0.4 mg of regadenoson per 5 mL given IV over 10 s econds. Nuclear Acquisition: Stress Tc-99m/Stress Tc-99m 1 day Rest Isotope: Tc-99m Sestamibi. Dose: 12.0 Date: 08/01/2019 Injection Time: 1100 Stress Isotope: Tc-99m Sestamibi. Dose: 36.0 Date: 08/01/2019 Injection Time: 1253 HR Resting HR: 68 bpm Max Heart Rate (APMHR): 175 bpm Max HR Achieved: 114 bpm Target HR (85% APMHR): 148 bpm % of APMHR: 65 Recovery HR: 75 bpm BP Resting BP: 154/100 mmHg Max BP: 200/120 mmHg Recovery BP: 170/100 mmHg ECG Resting ECG: LBBB Stress ECG: LBBB ST Change: Nondiagnostic - LBBB Arrhythmia: None Recovery ECG: LBBB Recovery ST Change: Nondiagnostic - LBBB Recovery Arrhythmia: None Medications Administered Aminophylline (50 mg at 1308) Clinical Reason for Termination: Completed protocol Stress Symptoms: Chest pain with radiation down left arm, diaphoresis, SOB Stress ECG Conclusion 1. Left bundle branch block limits the interpretability of the EKG portion of this exam. 2. Patient became severely symptomatic with stress and required Aminophyllin. Test Summary Supine 68 154/100 Pre-lexiscan injection. 1 min post lexiscan injection 114 176/100 3 min post lexiscan injection 98 180/104 7 out of 10 chest burning 6 min post lexiscan injection 82 200/120 Worsening chest burning with radiation down left arm. 9 min post lexiscan injection 85 190/102 12 min post lexiscan injection 87 180/118 Aminophylline 50 mg IVP given for non-subsiding chest discomfort post Lexiscan injection. 15 min post lexiscan injection 75 182/116 chest pain symptoms subsiding. 22 min post lexiscan injection 75 170/100 chest pain symptoms subsided MPI Conclusion There is a large, severe, reversible defect on the entire anterior and septal duran likely representi ng ischemia in the LAD territory. Ejection fraction is between 40-45% There is no TID These imaging findings in addition to patient's significant symptoms dsuring stress correspond with a positive stress test. Recommendations: Patient should proceed with cardiac catheterization. This case was discussed with alice clinton hospitalist on-call.
--- NOTE | 2019-08-01 15:55 | CMPROGNOTE_ITS ---
- If Service Date Differs Date of service: 08/01/19 Time of Service: 15:55 Care Management Progress Note S/O: attempted to visit with Saw today, who was having testing performed out of his room. Per provider, Saw had an MPI this afternoon, which Cardiology noted to be positive in the LAD territory, and he was symptomatic during the stress test. He is being transferred to [facility] today via ambulance. A: Saw is a 43 year old male admitted to [facility] on 07/30/2019 with exertional chest pain. P: Saw is being transferred to [facility] for cardiac catheterization, following positive stress test results. He is transferring via ambulance.
[2019-08-01 17:02] LABS: PTT Activated 24.5 sec (21.0-31.4)
== END 2019-08-01 16:55 | disposition short-term general hospital (02) ==
LOC: ER 13:23 → MS 13:57
PROVIDERS: Admitting Provider Internal Medicine; Emergency Provider Physician Assistant; PCP Internal Medicine; Visit Provider Internal Medicine
DX: R07.9 Chest pain, unspecified (principal); R06.02 Shortness of breath; R61 Generalized hyperhidrosis; I25.9 Chronic ischemic heart disease, unspecified; I10 Essential (primary) hypertension; Z87.891 Personal history of nicotine dependence; I44.7 Left bundle-branch block, unspecified; Z82.49 Family history of ischemic heart disease and other diseases of the circulatory system; F41.0 Panic disorder [episodic paroxysmal anxiety]
CPT/HCPCS: 36415; 78452; 80048; 80053; 80061; 80307; 85027; 85652; 93005; 99219; 99225; 99239; 99285; J1650; 71046; 81003; 83036; 83735; 83880; 84443; 84484; 85025; 85610; 85730; 93010; 93017; 93306; 99217; G0378; J0280; J2785

== ENCOUNTER 2019-09-11 08:07 | Outpatient (REF) | payer BC, SELFPAY ==
[2019-09-11 12:49] LABS: Anion Gap 8.3 mmol/L (3-11); BUN 15 mg/dL (7-18); CO2 28.7 mmol/L (21.0-32.0); CREATININE 0.89 mg/dL (0.70-1.30); Calcium 9.1 mg/dL (8.5-10.1); Calculated LDL 46 mg/dL; Chloride 104 mmol/L (98-107); Cholesterol 98 mg/dL (<200); Glucose 104 mg/dL (74-106); HDL Cholesterol 36 mg/dL (40-60); Potassium 4.7 mmol/L (3.5-5.1); Sodium 141 mmol/L (136-145); Triglyceride 81 mg/dL (<150)
== END 2019-09-11 08:27 ==
LOC: NCHCN 08:07
PROVIDERS: PCP Internal Medicine; Visit Provider Internal Medicine
DX: I25.10 Atherosclerotic heart disease of native coronary artery without angina pectoris (principal); I10 Essential (primary) hypertension; I44.7 Left bundle-branch block, unspecified
CPT/HCPCS: 80048; 80061

== ENCOUNTER 2019-09-16 11:45 | Outpatient (RCR) | payer BC, SELFPAY | END 2019-09-21 23:59 | disposition home or self-care (01) | LOC: CR 11:45 | PROVIDERS: PCP Internal Medicine; Visit Provider Family Medicine | DX: Z98.61 Coronary angioplasty status (principal); Z51.89 Encounter for other specified aftercare | CPT/HCPCS: S9472 ==

== ENCOUNTER 2019-10-01 08:00 | Outpatient (CLI) | payer BC, SELFPAY | END 2019-10-01 08:20 | PROVIDERS: PCP Internal Medicine; Visit Provider Orthopaedic Surgery | DX: Z01.818 Encounter for other preprocedural examination (principal) ==

== ENCOUNTER 2019-10-07 10:14 | Day surgery (SDC) | payer BC, SELFPAY ==
[2019-10-01 08:06] VITALS: BP 139/91; PULSE 76; RESP 17; TEMP 36.6; O2SAT 96
--- NOTE | 2019-10-04 10:05 | ANES_ITS ---
Date of service: 10/04/19 Time of Service: 10:05 Anesthesia Note Report Anesthesia Note: Jaron is a 43 yo man who had a history of increasing frequency of exertional chest pain with shortness of breath and radiation into his shoulder 4 or 5 days or so leading up to his being seen here on 08/02/19 for these symptoms. He was subsequently seen at [facility] where a cath was performed and an LAD [place] GINGER placed and his course since has been unremarkable. He has a sign ificant family history (father) in his early 40's with multiple UT's. We were consulted by preop and did see the patient to discuss the appropriateness of receiving anesthesia for an upcoming carpal tunnel repair. The surgeon reached out to Cardiology in [place] who recommends continuation of DAPT and while he believes the overall cardiac risk is low, leaves the decision up to the procedure team. Given the cardiology note and the fact that this patient is looking to have an elective procedure only 2 months after his stent placement while continuing his DAPT, our plan for management differs. Given current recommendations, our stance is that anesthesia will not be involved until the recommended 6 month post stent timeframe is reached. If this patient requires an emergency procedure, we would certainly provide the care needed but would recommend that he be seen at a tertiary care center with interventional cardiology services available for elective procedures prior to that timeframe.
[2019-10-07 10:38] VITALS: BP 124/78; PULSE 73; RESP 16; TEMP 36.7; O2SAT 99
[2019-10-07] MEDS: Lactated Ringers 1,000 ML 80 ML IV (10:57)
[2019-10-07] MEDS: ceFAZolin 1 GM/50 ML BAG IVPB (11:55)
[2019-10-07] MEDS: Lidocaine 1% Multi-Dose 50 ML VIAL (12:00)
--- NOTE | 2019-10-07 12:23 | W.PM.DSUDISC ---
Discharge Plan Disposition Patient Disposition: HOME Condition: Good Discharge Details Reason For Visit: L ECTR Attending Provider: Olman Schwarz Primary Care Provider: Joselo Vega Home Meds and New Rx's Prescriptions: New hydrocodone-acetaminophen 5-325 mg tablet 1 tab PO Q6H PRN (Reason: pain) Qty: 10 RF: 0 Continued aspirin [Adult Aspirin Regimen] 81 mg tablet,delayed release (DR/EC) 81 mg PO DAILY RF: 0 clonazepam 0.5 mg tablet 0.5 mg PO PRN RF: 0 spironolactone 25 mg tablet 12.5 mg PO DAILY RF: 0 sertraline 100 MG tablet 100 mg PO QPM RF: 0 atorvastatin 40 mg Tablet 40 mg PO QPM RF: 0 metoprolol succinate 50 mg Tablet Extended Release 24 Hr 50 mg PO DAILY RF: 0 clopidogrel 75 mg Tablet 75 mg PO DAILY RF: 0 prednisolone acetate 1 % Drops,Suspension 1 drp ophthalmic (eye) BID PRNRF: 0 nitroglycerin 0.4 mg Tablet, Sublingual 0.4 mg SUBLINGUAL Q5M PRNRF: 0 lisinopril 5 mg Tablet 5 mg PO DAILY RF: 0 clobetasol 0.05 % Ointment 1 applic TOPICAL DAILY PRNRF: 0 Discharge Instructions Additional Instructions: Elevate L hand above heart level as much as possible overnite tonite. Wiggle fingers L hand 10 times/hour when awake to prevent swelling. Keep splint and dressings dry and in place for 48 hours. After 48 hours, remove splint AND dressings and begin to move L wrist. Use L hand as much as your discomfort allows. After you remove the dressings you can shower or bathe and get the incision wet. Leave incision uncovered when it is dry and sealed. Take tylenol for mild pain. Take hydrocodone for breakthru pain, if needed. Follow up when he comes in for R ECTR next Monday.(10/14/19) Equipment/Supplies: Splint Activity:: Activity as Tolerated Remove Dressings/Wound Care:: 48 hours Shower/Bathe:: 48 hours Diet:: As Tolerated Discharge Orders Discharge Orders: Discharge Order (Routine); Ordered 10/07/19 Ordered By: Olman Schwarz DS: Diagnosis Discharge Diagnosis (1) Bilateral carpal tunnel syndrome: Status: Acute
--- NOTE | 2019-10-08 16:19 | ROE_ITS ---
DATE OF PROCEDURE: October 07, 2019 PREOPERATIVE DIAGNOSIS: Carpal tunnel syndrome, left. POSTOPERATIVE DIAGNOSIS: Same. PROCEDURE: Endoscopic carpal tunnel release, left. ANESTHESIA: Local infiltration and median nerve block using 1% Xylocaine solution and 0.5% Marcaine with epinephrine solution. SURGEON: Olman Schwarz M.D. INDICATIONS: This is a 43-year-old white male with longstanding bilateral carpal tunnel syndrome. T he left is slightly more symptomatic than the right. This has been confirmed with nerve conduction s tudies. He is not getting any relief from splinting at night. Carpal tunnel release was recommended to alleviate his symptoms. The patient wished to undergo the endoscopic technique of carpal tunnel release. Because of a recent history of insertion of a cardiac stent for unstable angina, the questi on arose about safe interval for surgery. 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 I had a thorough discussion with Saw how to pr oceed and he agreed to endoscopic carpal tunnel release using local anesthesia and a tourniquet. He would continue his Plavix pre and postoperatively. PROCEDURE: The patient was taken to the operating room on 10/07/19. He was placed supine on the ope rating table and the left hand, wrist and forearm were prepped and draped free in the usual sterile f ashion. A proximal tourniquet had been applied and I infiltrated the skin overlying the proximal fle xion crease of the left wrist, beginning at the flexor carpi radialis tendon and extending to the fle xor carpi ulnaris tendon. I then elevated the arm above heart level for two minutes to exsanguinate the upper extremity and then inflated the tourniquet to 230 mmHg. A transverse incision was made in line with the proximal flexion crease, beginning at the flexor carpi radialis tendon and extending t o the flexor carpi ulnaris. Subcutaneous veins were cauterized. A dry wound was obtained. A distal ly-based fascial flap was then created to gain access to the carpal canal. I then performed a median nerve block with 0.5% Marcaine with an epinephrine solution and some 1% Xylocaine solution. After w aiting a couple of minutes, excellent analgesia was obtained. I then proceeded in the usual fashion, first using the synovial reflector to free up any soft tissue attachments to the undersurface of the volar carpal ligament. A series of obturators were then inserted to make room for the endoscope. Jo Ann Montaño endoscope blade device was inserted in the carpal canal and advanced until the distal edge of the volar carpal ligament was visualized. Care was taken to position the endoscope on the ulnar lois e of the canal to avoid any injury to the median nerve. With the distal edge clearly visible I depre ssed the trigger and elevated the blade and then brought the elevator blade proximally through the in cision, transecting the volar carpal ligament. I then used Littler scissors to perform a subcutaneou s fasciotomy proximal to the incision for about two inches. The wound was irrigated with saline solu tion. A dry wound was visualized. The skin edges were then approximated with two interrupted horizo ntal mattress sutures of #4-0 nylon suture material. The wound was dressed with Xeroform gauze and jo ann lima I applied direct pressure with a gauze sponge and deflated the tourniquet. After applying pressu re for a minute there was no bleeding through the dressing. The remainder of the dressings were appl ied of gauze 4x4's, wrapped with a Kerlix and wrapped with a 3-inch NOLA bandage. A commercial cockup wrist splint was applied over the dressings. The patient tolerated the procedure well and was disch arged to the Day Surgery Unit in good condition. The patient was discharged home from the Day Surgery Unit with instructions to elevate his left hand above heart level as much as possible overnight. He is to keep the dressings and splint dry and inta ct for 48 hours. After 48 hours he is to remove the splint and dressings and start to move his left wrist. He may use his left hand as much as discomfort allows. After he removes the dressings in 48 hours he may shower or bathe and get the incision wet. He can leave the incision uncovered when it i s dry and sealed. He was given a prescription for breakthrough pain of Oxycodone with APAP 5/325, on e tablet every six hours, as needed. He will take plain Tylenol for mild pain. He will follow-up mario day in one week when he goes to the Day Surgery Unit to have a right endoscopic carpal tunnel relea se.
== END 2019-10-07 13:05 | disposition home or self-care (01) ==
PROVIDERS: PCP Internal Medicine; Visit Provider Orthopaedic Surgery
PROC: 01N54ZZ Release Median Nerve, Percutaneous Endoscopic Approach (ICD-10-PCS; CPT 29848; principal; 2019-10-07 11:15)
DX: G56.02 Carpal tunnel syndrome, left upper limb (principal)
CPT/HCPCS: 29848; J0690; L3908

== ENCOUNTER 2019-10-11 08:00 | Outpatient (RCR) | payer BC, SELFPAY | END 2019-10-22 23:59 | disposition home or self-care (01) | LOC: CR 08:00 | PROVIDERS: PCP Internal Medicine; Visit Provider Family Medicine | DX: Z98.61 Coronary angioplasty status (principal); Z51.89 Encounter for other specified aftercare | CPT/HCPCS: S9472 ==

== ENCOUNTER 2019-10-14 09:20 | Day surgery (SDC) | payer BC, SELFPAY ==
--- NOTE | 2019-10-01 09:23 | PDOC.ANES ---
Date of service: 10/01/19 Time of Service: 09:23 Anesthesia Note Report Anesthesia Note: Asked by preoperative staff to talk with patient in preoperative clinic. Patient had stent placement to LAD in July,. Patient educated about current recommendations and strongly encouraged to wait a minimum of 6/months for any elective surgery. Patient verbalizes understanding of recommendations. Orthopedic office made aware.
[2019-10-14 09:47] VITALS: BP 145/94; PULSE 64; RESP 16; TEMP 36.3; O2SAT 97
[2019-10-14] MEDS: Lactated Ringers 1,000 ML 80 ML IV (10:00)
[2019-10-14] MEDS: diazePAM 5 MG TAB 10 MG PO (11:09)
[2019-10-14] MEDS: ceFAZolin 1 GM/50 ML BAG IVPB (11:34)
--- NOTE | 2019-10-14 12:12 | W.PM.DSUDISC ---
Discharge Plan Disposition Patient Disposition: HOME Condition: Good Discharge Details Attending Provider: Olman Schwarz Primary Care Provider: Joselo Vega Home Meds and New Rx's Prescriptions: Continued aspirin [Adult Aspirin Regimen] 81 mg tablet,delayed release (DR/EC) 81 mg PO DAILY RF: 0 clonazepam 0.5 mg tablet 0.5 mg PO PRN RF: 0 spironolactone 25 mg tablet 12.5 mg PO DAILY RF: 0 sertraline 100 MG tablet 100 mg PO QPM RF: 0 atorvastatin 40 mg Tablet 40 mg PO QPM RF: 0 metoprolol succinate 50 mg Tablet Extended Release 24 Hr 50 mg PO DAILY RF: 0 clopidogrel 75 mg Tablet 75 mg PO DAILY RF: 0 prednisolone acetate 1 % Drops,Suspension 1 drp ophthalmic (eye) BID PRNRF: 0 nitroglycerin 0.4 mg Tablet, Sublingual 0.4 mg SUBLINGUAL Q5M PRNRF: 0 lisinopril 5 mg Tablet 5 mg PO DAILY RF: 0 clobetasol 0.05 % Ointment 1 applic TOPICAL DAILY PRNRF: 0 hydrocodone-acetaminophen 5-325 mg tablet 1 tab PO Q6H PRN (Reason: pain) Qty: 10 RF: 0 Discharge Instructions Additional Instructions: Elevate R hand above heart level as much as possible overnite tonite. Wiggle fingers R hand 10 times/hour when awake to prevent swelling. Keep dressings and splint dry and intact for 48 hours. Remove dressings and splint after 48 hours, and begin to move R wrist. After you remove dressings, you may shower or bathe and get incision wet. Leave incision uncovered when it is dry and sealed. May use R hand as much as your discomfort allows. Take tylenol for mild pain. Take hydrocodone you have left over from L carpal tunnel surgery for breakthru pain. Follow up in 's office in one week to take out sutures from L wrist. Follow up 1 week later to remove sutures from R wrist. Referrals: Olman Schwarz MD [ [facility] STAFF PHYSICIAN] - (f/u 1 week to remove sutures L wrist. F/u 1 week later to remove sutures from R wrist.) Equipment/Supplies: Splint Activity:: Activity as Tolerated Remove Dressings/Wound Care:: 48 hours Shower/Bathe:: 48 hours Diet:: As Tolerated Discharge Orders Discharge Orders: Discharge Order (Routine); Ordered 10/14/19 Ordered By: Olman Shcwarz DS: Diagnosis Discharge Diagnosis (1) Bilateral carpal tunnel syndrome: Status: Acute
[2019-10-14 12:29] VITALS: BP 133/93; PULSE 57; RESP 18; TEMP 36.4; O2SAT 95
--- NOTE | 2019-10-15 08:21 | ROE_ITS ---
DATE OF PROCEDURE October 14, 2019 PREOPERATIVE DIAGNOSIS Carpal tunnel syndrome, right. POSTOPERATIVE DIAGNOSIS Carpal tunnel syndrome, right. PROCEDURE Endoscopic carpal tunnel release, right. ANESTHESIA Local infiltration and median nerve block utilizing 2% Xylocaine solution and 0.5% Marcaine with epin ephrine solution. SURGEON Olman Schwarz M.D. INDICATIONS FOR PROCEDURE This is a 43-year-old white male with longstanding severe bilateral carpal tunnel syndrome. He under went a successful carpal tunnel release on the left using local anesthesia a week ago. Local anesthes ia was selected because of reluctance of the anesthesia department to perform an IV regional anesthes ia within six months after a cardiac stent had been inserted. The patient's food service director however, has provided written opinion about very low risk with this patien t utilizing local anesthesia and utilizing a tourniquet in order to continue antiplatelet therapy wit h Plavix. Saw is very pleased with the relief of symptoms on the left side and wishes to proceed with the silvestre e on the left. He is experiencing symptoms of a panic attack when he was seen preoperatively in the D Surgery Unit. The patient says that he has these frequently. He was requesting some antianxiety m edications and I decided to give him 10 mg of valium p.o. After waiting 15 minutes or so, he gets go od relief of his anxiety and we were able to proceed. DESCRIPTION OF PROCEDURE The patient was taken to the Operating Room. He was placed supine on the operating table. Proximal t ourniquet was applied to the right upper extremity. The right hand, wrist, and forearm were prepped a nd draped free in the usual sterile fashion. I exsanguinated the right upper extremity by elevation f or 2 minutes and then inflated the tourniquet to 280 mmHg. I infiltrated the skin over the proximal flexion crease of the right wrist with 2% Xylocaine solution. An incision was made from the flexor ca rpi radialis tendon to the flexor carpi ulnaris tendon in line with the proximal flexion crease of th e wrist. The incision was carried down to the fascia. The subcutaneous veins were cauterized. A dista lly based fascial flap was raised, at this point I visualized the median nerve. I then performed a me cierra nerve block with 0.5% Marcaine with epinephrine solution. Once a good median nerve block was obt ained, I then proceeded with the synovial reflector to free up any soft tissue attachments to the und ersurface of the volar carpal ligament. A series of obturators were then inserted to make room for th e endoscope. The AGE-Endoscope blade device was then inserted in the carpal canal, and advanced unti l the distal edge of the volar carpal ligament was visualized. Care was taken to position the endosco pe against the hook of the hamate on the ulnar side of the canal. When the distal edge of the volar carpal ligament was clearly visualized, I depressed the trigger elevating the blade. The elevator chrissy de was then brought out from distal to proximal through the skin incision transecting the volar carpa l ligament. Using Littler scissors I performed a subcutaneous fasciotomy from the incision proximall y about 2 inches. The wound was irrigated with Betadine and saline solution. The margins were further infiltrated with 0.5% Marcaine with epinephrine solution. The skin edges were approximated with two horizontal mattre ss sutures of #4-0 Nylon suture material. The wound was dressed with Xeroform gauze, sterile gauze, 4 x4s, wrapped with a Kerlix bandage, then wrapped with a 3-inch Kashif bandage. The tourniquet was relea sed. There was no breakthrough bleeding through the dressings. A commercial cock-up wrist splint was applied over the dressings. The patient tolerated the procedure well and was discharged to the Day Surgery Unit in good condition . The patient was discharged to the Day Surgery Unit with instructions to try to elevate his right hand above heart level as much as possible overnight tonight. He is encouraged to wiggle his fingers 10 t imes an hour while awake to prevent stiffness and swelling. He will take Tylenol for mild pain. He will take left-over hydrocodone from his left carpal tunnel re lease for breakthrough pain. He is to keep his splint and dressings dry and in place for [address] 48 hours, he is to remove his splint and dressings and begin to move his right wrist. After he re moves his dressings, he may shower or bathe and get his incision wet. He is to leave the incision un covered when it is dry and sealed. He will followup at Dr. Schwarz's office in a week for suture removal from his left ECTR incision. I inspected this incision today and it is clean and healing we ll. He will the followup a week after that appointment for suture removal on the right wrist.
== END 2019-10-14 12:53 | disposition home or self-care (01) ==
PROVIDERS: PCP Internal Medicine; Visit Provider Orthopaedic Surgery
PROC: 01N54ZZ Release Median Nerve, Percutaneous Endoscopic Approach (ICD-10-PCS; CPT 29848; principal; 2019-10-14 10:15)
DX: G56.01 Carpal tunnel syndrome, right upper limb (principal)
CPT/HCPCS: 29848; J0690; L3908

== ENCOUNTER 2019-11-01 08:00 | Outpatient (RCR) | payer BC, SELFPAY | END 2019-11-22 23:59 | disposition home or self-care (01) | LOC: CR 08:00 | PROVIDERS: PCP Internal Medicine; Visit Provider Family Medicine | DX: Z98.61 Coronary angioplasty status (principal); Z51.89 Encounter for other specified aftercare | CPT/HCPCS: S9472 ==

== ENCOUNTER 2019-11-12 14:53 | Emergency (ER) | payer BC, SELFPAY ==
[2019-11-12 14:59] VITALS: BP 156/99; PULSE 91; RESP 16; TEMP 36.7; O2SAT 96
--- NOTE | 2019-11-12 15:16 | W.ED.GENAD ---
Discharge Plan Disposition Patient Disposition: HOME Condition: Improving Discharge Details Chief Complaint: Vascular Clinical Impression: Bleeding from varicose vein Primary Care Provider: Joselo Vega ED Provider: Olman Ramos Home Meds and New Rx's Prescriptions: Continued aspirin [Adult Aspirin Regimen] 81 mg tablet,delayed release (DR/EC) 81 mg PO DAILY RF: 0 clonazepam 0.5 mg tablet 0.5 mg PO PRN RF: 0 spironolactone 25 mg tablet 12.5 mg PO DAILY RF: 0 sertraline 100 MG tablet 100 mg PO QPM RF: 0 atorvastatin 40 mg Tablet 40 mg PO QPM RF: 0 metoprolol succinate 50 mg Tablet Extended Release 24 Hr 50 mg PO DAILY RF: 0 clopidogrel 75 mg Tablet 75 mg PO DAILY RF: 0 prednisolone acetate 1 % Drops,Suspension 1 drp ophthalmic (eye) BID PRNRF: 0 nitroglycerin 0.4 mg Tablet, Sublingual 0.4 mg SUBLINGUAL Q5M PRNRF: 0 lisinopril 5 mg Tablet 5 mg PO DAILY RF: 0 clobetasol 0.05 % Ointment 1 applic TOPICAL DAILY PRNRF: 0 hydrocodone-acetaminophen 5-325 mg tablet 1 tab PO Q6H PRN (Reason: pain) Qty: 10 RF: 0 Discharge Instructions Additional Instructions: Remove Kashif bandage this evening and elevate leg to reduce swelling and venous congestion. Leave dressing in place for 48 to 72 hours. Then may remove and place regular Band-Aid if needed. Continue all regularly prescribed medications. Medical Decision Making 44-year-old male with known varicose veins of lower extremity, had bleeding of the right medial ankle varicosity today at work with soaking of his sock in his boot. After the sock was removed at triage, no evidence of active bleeding. I placed Xeroform gauze and a 4 x 4 with a gentle pressure dressing that the patient will leave on for 48 to 72 hours. He was instructed on home care. HPI General Mode of arrival: ambulatory. Date/Time Provider Initiated Documentation: 11/12/19 14:56. Limitations to Documentation: no limitations. Information obtained by: patient. History of Present Illness 44 year old M presents to the emergency department with the chief complaint of Right foot varicosity bleeding, described as similar to prior episodes, and is localized to the right and lower extremity. and it has been now resolved. No relieving factors improve symptom(s), No exacerbating factors reported . Patient notes no other symptoms.. Patient did receive the following treatments prior to arrival, none Related Data Home Medications Medication Instructions Recorded Confirmed sertraline 100 mg PO QPM 12/02/17 11/12/19 clonazepam 0.5 mg tablet 0.5 mg PO PRN tab 12/20/18 11/12/19 spironolactone 25 mg tablet 12.5 mg PO DAILY 12/20/18 11/12/19 aspirin 81 mg tablet,delayed 81 mg PO DAILY 09/24/19 11/12/19 release atorvastatin 40 mg PO QPM 10/01/19 11/12/19 clobetasol 1 applic TOPICAL DAILY PRN 10/01/19 11/12/19 clopidogrel 75 mg PO DAILY 10/01/19 11/12/19 lisinopril 5 mg PO DAILY 10/01/19 11/12/19 metoprolol succinate 50 mg PO DAILY 10/01/19 11/12/19 nitroglycerin 0.4 mg SUBLINGUAL Q5M PRN 10/01/19 11/12/19 prednisolone acetate 1 drp OPHTHALMIC (EYE) BID PRN 10/01/19 11/12/19 hydrocodone-acetaminophen 1 tab PO Q6H PRN #10 tab 10/07/19 11/12/19 Previous Rx's Medication Instructions Recorded hydrocodone-acetaminophen 1 tab PO Q6H PRN #10 tab 10/07/19 Allergies Allergy/AdvReac Type Severity Reaction Status Date / Time No Known Allergies Allergy Unverified 11/12/19 15:02 General Stated Complaint: Vascular FLYNN: 3 Review of Systems Narrative: Patient has otherwise been well. No other complaints. He does take Plavix for history of coronary artery disease. 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 Pleasant, well groomed, interactive. HEAD: Normocephalic, atraumatic ENT: Mucous membranes moist, oropharynx unremarkable, External ear exam unremarkable EYES: PERRL, EOMI NECK: Full ROM, no ED, no menigismus EXT: Full ROM, no edema, no rash. The right medial ankle has an area of varicosity that has scabbed over with blood. No active bleeding. There is no evidence of overlying erythema or tenderness. Exam is otherwise unremarkable. Neuro: Grossly normal neurologic exam, conversant, interactive. Psych: Speech fluent, thoughts congruent, affect normal Course Vital Signs Vital signs: Vital Signs Temperature 36.7 C 11/12/19 14:59 Pulse 91 H 11/12/19 14:59 Respiratory Rate 16 11/12/19 14:59 Blood Pressure 156/99 H 11/12/19 14:59 Pulse Oximetry 96 11/12/19 14:59 Temperature 36.7 C 11/12/19 14:59 Temperature Source Skin 11/12/19 14:59 Pulse 91 H 11/12/19 14:59 Respiratory Rate 16 11/12/19 14:59 Respiratory Effort Non-Labored 11/12/19 14:59 Blood Pressure 156/99 H 11/12/19 14:59 Blood Pressure Position Sitting 11/12/19 14:59 Pulse Oximetry 96 11/12/19 14:59 Pain Level 0 11/12/19 15:09
[2019-11-12 15:26] VITALS: BP 156/99; PULSE 91; RESP 16; TEMP 36.7; O2SAT 96
== END 2019-11-12 15:27 | disposition home or self-care (01) ==
LOC: ER 15:24
PROVIDERS: Emergency Provider Emergency Medicine; PCP Internal Medicine
DX: I83.891 Varicose veins of right lower extremity with other complications (principal); Z79.02 Long term (current) use of antithrombotics/antiplatelets; I10 Essential (primary) hypertension
CPT/HCPCS: 99282

== ENCOUNTER 2019-11-19 17:49 | Outpatient (REF) | payer BC, SELFPAY ==
[2019-11-19 22:00] LABS: HCT 43.5 % (40.0-50.0); HGB 14.9 g/dL (13.5-17.5); Mean Corp. HGB Concentration 34.3 g/dL (32.0-36.0); Mean Corpuscular Hemoglobin 30.9 pg (27.0-33.0); Mean Corpuscular Volume 90.2 fL (80-95); Mean Platelet Volume 10.4 fL (8.0-11.0); Platelet Count 246 x1000/uL (130-400); RBC 4.82 m/cumm (4.50-6.00); White Blood Cell Count 8.29 k/cumm (4.4-10.8)
[2019-11-19 22:13] LABS: ALT 43 U/L (16-63); AST 22 U/L (15-37); Albumin 4.2 g/dL (3.4-5.0); Alkaline Phosphatase 69 U/L (46-116); Anion Gap 9.5 mmol/L (3-11); BUN 16 mg/dL (7-18); Bilirubin, Total 0.8 mg/dL (0.2-1.0); CO2 28.5 mmol/L (21.0-32.0); CREATININE 1.09 mg/dL (0.70-1.30); Chloride 104 mmol/L (98-107); Creatine Kinase 205 U/L (39-308); Glucose 98 mg/dL (74-106); Potassium 4.3 mmol/L (3.5-5.1); Sodium 142 mmol/L (136-145); Total Protein 6.9 g/dL (6.4-8.2)
== END 2019-11-19 18:09 ==
LOC: NCHCN 17:49
PROVIDERS: PCP Internal Medicine; Visit Provider Internal Medicine
DX: R53.83 Other fatigue (principal); M79.10 Myalgia, unspecified site
CPT/HCPCS: 80053; 82550; 85027

== ENCOUNTER 2020-02-18 11:44 | Outpatient (REF) | payer BC, SELFPAY ==
[2020-02-18 21:05] LABS: Hemoglobin A1C 5.7 % (3.8-5.6)
[2020-02-18 21:17] LABS: Creatine Kinase 215 U/L (39-308); Glucose 101 mg/dL (74-106)
[2020-02-18 21:38] LABS: Calculated LDL 81 mg/dL (<100); Cholesterol 147 mg/dL (<200); HDL Cholesterol 45 mg/dL (40-60); Triglyceride 107 mg/dL (<150)
== END 2020-02-18 12:04 ==
LOC: NCHCN 11:44
PROVIDERS: PCP Internal Medicine; Visit Provider Internal Medicine
DX: I25.10 Atherosclerotic heart disease of native coronary artery without angina pectoris (principal); R73.09 Other abnormal glucose
CPT/HCPCS: 80061; 82550; 82947; 83036

== ENCOUNTER 2020-09-14 15:12 | Outpatient (REF) | payer BC, SELFPAY ==
[2020-09-14 21:49] LABS: HGB 15.2 g/dL (13.5-17.5); MCH 30.3 pg (27.0-33.0); MCHC 33.8 % (32.0-36.0); MCV 89.8 fL (80-95); MPV 10.3 fL (8.0-11.0); Platelet Count 210 10^3/uL (130-400); RBC 5.01 10^6/uL (4.36-5.78); RDW 11.7 % (11.8-14.1); RDW-SD 37.9 fL; WBC 7.38 10^3/uL (4.4-10.8)
[2020-09-14 22:06] LABS: Hemoglobin A1C 5.8 % (<5.7)
[2020-09-14 22:30] LABS: ALT 54 U/L (16-63); AST 23 U/L (15-37); Albumin 4.4 g/dL (3.4-5.0); Alkaline Phosphatase 71 U/L (46-116); Anion Gap 10.7 mmol/L (3-11); BUN 17 mg/dL (7-18); Bilirubin, Total 1.1 mg/dL (0.2-1.0); CO2 27.3 mmol/L (21.0-32.0); CREATININE 1.01 mg/dL (0.70-1.30); Calcium 9.1 mg/dL (8.5-10.1); Chloride 103 mmol/L (98-107); Ferritin 238 ng/mL (26-388); Glucose 122 mg/dL (74-106); Potassium 4.2 mmol/L (3.5-5.1); Sodium 141 mmol/L (136-145); TSH 0.78 uIU/mL (0.36-3.74); Total Protein 7.2 g/dL (6.4-8.2)
[2020-09-14 22:46] LABS: FREE T4 0.88 ng/dL (0.76-1.46)
[2020-09-14 22:58] LABS: Iron 142 ug/dL (65-175); Total Iron Binding Capacity 247 ug/dL (250-450); Transferrin Sat 57 % (20-55)
== END 2020-09-14 15:32 ==
LOC: NCHCN 15:12
PROVIDERS: PCP Internal Medicine; Visit Provider Internal Medicine
DX: R53.83 Other fatigue (principal); R40.0 Somnolence
CPT/HCPCS: 80053; 85027; 82728; 83036; 83540; 83550; 84439; 84443

== ENCOUNTER 2021-12-13 16:44 | Outpatient (REF) | payer BC, SELFPAY ==
[2021-12-13 20:56] LABS: HCT 48.9 % (40.0-50.0); MCH 29.7 pg (27.0-33.0); MCHC 32.7 % (32.0-36.0); MCV 90.7 fL (80-95); MPV 10.6 fL (8.0-11.0); Platelet Count 237 10^3/uL (130-400); RBC 5.39 10^6/uL (4.36-5.78); RDW 11.9 % (11.8-14.1); RDW-SD 39.2 fL; WBC 8.85 10^3/uL (4.4-10.8)
[2021-12-13 21:38] LABS: ALT 68 U/L (16-63); AST 25 U/L (15-37); Albumin 4.5 g/dL (3.4-5.0); Alkaline Phosphatase 73 U/L (46-116); Anion Gap 8.4 mmol/L (3-11); BUN 20 mg/dL (7-18); Bilirubin, Total 0.8 mg/dL (0.2-1.0); CO2 28.6 mmol/L (21.0-32.0); CREATININE 0.9 mg/dL (0.70-1.30); Calcium 8.9 mg/dL (8.5-10.1); Chloride 103 mmol/L (98-107); Glucose 97 mg/dL (74-106); Potassium 4.1 mmol/L (3.5-5.1); Sodium 140 mmol/L (136-145); TSH (W/Ref FT4) 0.77 uIU/mL (0.36-3.74); Total Protein 7.3 g/dL (6.4-8.2)
== END 2021-12-13 16:45 | disposition home or self-care (01) ==
LOC: NCHCN 16:44
PROVIDERS: PCP Internal Medicine; Visit Provider Family Medicine
DX: R53.83 Other fatigue (principal); I10 Essential (primary) hypertension; G47.33 Obstructive sleep apnea (adult) (pediatric)
CPT/HCPCS: 80053; 85027; 84443

== ENCOUNTER → 2022-03-15 11:41 | Outpatient (CLI) | payer BC, SELFPAY ==
--- NOTE | 2022-03-15 | DI.RAD_ITS ---
Exam(s) XR SHOULDER RT COMPLETE 2+V EXAM: XR SHOULDER RT COMPLETE 2+V CLINICAL HISTORY: ROTATOR CUFF SYNDROME; RIGHT -- M75.101 TECHNIQUE: COMPARISON: No exams were available for comparison FINDINGS: Five views were obtained. There are mild hypertrophic degenerative changes at the acromioclavicular joint. Cartilaginous joint space of the glenohumeral joint appears fairly well maintained. Minimal marginal osteophyte formation noted at the greater tuberosity of the humerus. No other significant b anita or soft tissue abnormality seen. IMPRESSION: DJD of AC joint. RADIATION DOSE DELIVERED: Total DLP
== END ==
PROVIDERS: PCP Internal Medicine; Visit Provider Family Medicine
DX: M25.511 Pain in right shoulder (principal); M19.011 Primary osteoarthritis, right shoulder; M75.101 Unspecified rotator cuff tear or rupture of right shoulder, not specified as traumatic
CPT/HCPCS: 73030

== ENCOUNTER 2022-07-19 02:32 | Emergency (ER) | payer SELFPAY ==
[2022-07-19] VITALS (90 sets, daily range): BP systolic 134–173; BP diastolic 75–105; PULSE 64–96; RESP 11–24; TEMP 36.6–36.8; O2SAT 92–98
--- NOTE | 2022-07-19 02:30 | RT.EKG_ITS ---
APPROVED REPORT Exam: Resting ECG Reason for Exam: chest pain Patient Location: E HR:94 bpm ECG Measurements Heart Rate 94 AXIS MA 180 P 27 QRSd 159 QRS -9 QT 415 T 160 QTc 520 Conclusion Sinus rhythm...normal P axis, V-rate 60- 99 Left bundle branch block...QRSd>120, broad/notched R ST elevation secondary to IVCD...Multiple VCG criteria I have reviewed and interpreted ECG and agree with software generated interpretation. There are no significant changes compared to prior EKG performed on 08/01/2019 at 16:27.
--- NOTE | 2022-07-19 02:36 | W.ED.GENAD ---
Discharge Plan Disposition Patient Disposition: [facility] INPATIENT Condition: Stable Discharge Details Clinical Impression: Chest pain Primary Care Provider: Joselo Vega ED Provider: Petr Pereira [place] Meds and New Rx's Prescriptions: No Action aspirin [Adult Aspirin Regimen] 81 mg tablet,delayed release (DR/EC) 81 mg PO DAILY clonazepam 0.5 mg tablet 0.5 mg PO PRN sertraline 100 MG tablet 100 mg PO QPM atorvastatin 40 mg Tablet 40 mg PO QPM metoprolol succinate 50 mg Tablet Extended Release 24 Hr 50 mg PO DAILY prednisolone acetate 1 % Drops,Suspension 1 drp ophthalmic (eye) BID PRN Rx Instructions: L eye nitroglycerin 0.4 mg Tablet, Sublingual 0.4 mg SUBLINGUAL Q5M PRN lisinopril 5 mg Tablet 10 mg PO DAILY clobetasol 0.05 % Ointment 1 applic TOPICAL DAILY PRN Medical Decision Making Patient presenting with chest pain which is since resolved with residual left arm discomfort and numbness after waking about 1 hour ago. Patient with known coronary disease status postcardiac stent in 2019 with similar presentation. Patient's EKG is left bundle branch block which is old. His EKG is unchanged from previous. He is mostly asymptomatic at this point. He PERCs out for PE. Laboratory studies for ACS sent. Aspirin given. Sublingual nitro ordered. Patient did not receive sublingual nitro has essentially asymptomatic when nurse went in to give it to him. He did receive the aspirin. Initial labs are unremarkable and first troponin is normal. Chest x-ray without acute changes per my review. Plan repeat EKG and troponin at 6 AM. If unchanged will admit to hospitalist for stress testing. If changes present or troponin elevating will discuss with cardiology at [facility]. Patient's repeat EKG and troponin remain unchanged. Will discuss with hospitalist for chest pain admission and stress testing prior to discharge. Patient aware of plan and agreeable. Medical Records Medical records reviewed: Yes I reviewed the patient's medical records. Lab Data Lab results reviewed: Yes I reviewed the patient's lab results. ECG Data Attestation: I personally reviewed and interpreted this ECG (s) as follows: Prior ECG tracings: available for review Interpretation: See EKG. HPI General Mode of arrival: ambulatory. Date/Time Provider Initiated Documentation: 07/19/22 02:36. Limitations to Documentation: no limitations. Information obtained by: patient. HPI Narrative: Patient presents to ED with some left-sided chest pain with associated left arm discomfort and numbness that woke him up about 1 hour ago. He has some associated diaphoresis, nausea, lightheadedness. He denies any shortness of breath. He has noticed increased fatigue and occasional left arm numbness on occasion in the last few weeks. He has not had any type of chest pain or pressure. He does have known coronary disease with previous stent. He reports symptoms tonight are similar to presentation then. He denies fever or cough. He denies back pain, abdominal pain, vomiting, leg pain, leg swelling. In the ED he has no chest pain or pressure. He still has some minor left arm discomfort and numbness. Other associated symptoms have resolved. Related Data Home Medications Medication Instructions Recorded Confirmed sertraline 100 mg tablet 100 mg PO QPM 12/02/17 07/19/22 clonazepam 0.5 mg tablet 0.5 mg PO PRN 12/20/18 07/19/22 aspirin 81 mg tablet,delayed 81 mg PO DAILY 09/24/19 07/19/22 release (Adult Aspirin Regimen) atorvastatin 40 mg tablet 40 mg PO QPM 10/01/19 07/19/22 clobetasol 0.05 % topical ointment 1 applic topical DAILY PRN 10/01/19 07/19/22 lisinopril 5 mg tablet 10 mg PO DAILY 10/01/19 07/19/22 metoprolol succinate 50 mg 50 mg PO DAILY 10/01/19 07/19/22 tablet,extended release 24 hr nitroglycerin 0.4 mg sublingual 0.4 mg sublingual Q5M PRN 10/01/19 07/19/22 tablet prednisolone acetate 1 % eye 1 drp ophthalmic (eye) BID PRN 10/01/19 07/19/22 drops,suspension Allergies Allergy/AdvReac Type Severity Reaction Status Date / Time No Known Allergies Allergy Unverified 07/19/22 02:39 General FLYNN: 3 Review of Systems Narrative: 08/05 Review of Systems completed and is negative except as stated above in HPI (Systems reviewed: Const, Eyes, ENT, Resp, CV, GI, , MSK, Skin, Neuro) PFSH All Active Problems (Updated 07/19/22 @ 07:04 by Petr Pereira MD) Bilateral carpal tunnel syndrome (Acute) Left ECTR DOS: 10/07/2019 Right ECTR DOS: 10/14/2019 Chest pain (Acute) Discharge planning issues (Acute) Panic disorder (Acute) Medical History CAD (coronary artery disease), [place] coronary artery High cholesterol HTN (hypertension) LBBB (left bundle branch block) Venous insufficiency RLE Vision loss, 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 Surgical History History of cardiac catheterization 08/02/19 Cardiac Cath @ [facility] – [place] w/stent placement Family History Father Cancer Agent orange exposure Heart disease Multiple MIs, at age 50 Mother Cancer COPD (chronic obstructive pulmonary disease) Social History Smoking/Tobacco Use Status: Former Tobacco Use Quit Date: 11/22/03 Smoking risk assessment performed?: Yes Alcohol Intake: current Alcohol Intake frequency: 0-2 drinks per day Alcohol type: beer Drug use: Never Substance use type: does not use Details: alcohol: t-1 current occupation: [employer] employee Do you feel safe at home: Yes Do you feel safe in your relationship?: Yes Exam Narrative Exam Narrative: Const: WDWN male in NAD. HEENT: NC/AT. Normal facial exam. Eyes: Normal conjunctiva and sclera. Neck: Supple. Trachea midline. Lungs: Normal respiratory effort. Lungs are clear. Cor: RRR without murmur/gallop. Good radial pulses. GI: Soft. NT/ND. No guarding or rebound. Neuro: A+O x 3. Normal speech, mentation, gait. Cranial nerves II - XII grossly intact. No gross motor or sensory deficit. Ext: No C/C/E. No calf tenderness. Skin: Warm and dry without rash.
--- NOTE | 2022-07-19 02:45 | DI.RAD_ITS ---
Exam(s) XR PORTABLE CHEST AP EXAM: XR PORTABLE CHEST AP CLINICAL HISTORY: chest pain TECHNIQUE: 2D digital imaging was performed of the chest. Two images were obtained. AP views were obtained. COMPARISON: CR XR CHEST 2V PA LATERAL from 07/30/2019 FINDINGS: MEDIASTINUM: Normal. HEART: Normal. PULMONARY VASCULATURE: Normal. LUNGS: Clear. PLEURAL SPACE: No pleural effusion or pneumothorax. BONE:Within normal limits for the patient's age. OTHER FINDINGS:Normal. IMPRESSION: No acute pulmonary findings. DATA REPOSITORY: RADIATION DOSE DELIVERED:
[2022-07-19 03:07] LABS: Abs Immature Grans 0.07 10^3/uL (0.0-0.06); Absolute Basophil Count 0.06 10^3/uL (0.0-0.2); Absolute Eosinophil Count 0.24 10^3/uL (0.0-0.7); Absolute Lymphocyte Count 2.54 10^3/uL (1.2-3.4); Absolute Monocyte Count 0.79 10^3/uL (0.1-0.8); Absolute Neutrophil Count 3.13 10^3/uL (1.2-6.7); Basophils % 0.9; Eosinophils % 3.5; HCT 43.4 % (40.0-50.0); HGB 15.1 g/dL (13.5-17.5); Lymphocytes % 37.2; MCH 31.6 pg (27.0-33.0); MCHC 34.8 % (32.0-36.0); MCV 91 fL (80-95); MPV 10.3 fL (8.0-11.0); Monocytes % 11.6; Neutrophils % 45.8; Platelet Count 191 10^3/uL (130-400); RBC 4.78 10^6/uL (4.36-5.78); RDW 11.9 % (11.8-14.1); RDW-SD 39.6 fL; WBC 6.83 10^3/uL (4.4-10.8)
[2022-07-19] MEDS: Aspirin 81 MG CHEW 324 MG CH (03:09)
[2022-07-19 03:23] LABS: ALT 49 U/L (16-63); AST 22 U/L (15-37); Albumin 3.7 g/dL (3.4-5.0); Alkaline Phosphatase 80 U/L (46-116); Anion Gap 8.3 mmol/L (3-11); BUN 14 mg/dL (7-18); Bilirubin, Total 0.5 mg/dL (0.2-1.0); CO2 27.7 mmol/L (21.0-32.0); CREATININE 0.8 mg/dL (0.70-1.30); Calcium 8.7 mg/dL (8.5-10.1); Chloride 104 mmol/L (98-107); Estimated GFR 109.17 (mL/min/1.73m2); Glucose 126 mg/dL (74-106); Magnesium 1.9 mg/dL (1.8-2.4); Potassium 3.5 mmol/L (3.5-5.1); Sodium 140 mmol/L (136-145); Total Protein 6.8 g/dL (6.4-8.2); Troponin I < 50 ng/L (<or=60)
--- NOTE | 2022-07-19 04:25 | DI.VRAD_ITS ---
PROCEDURE INFORMATION: Exam: XR Chest Exam date and time: 07/19/2022 3:04 AM Age: 46 years old Clinical indication: Left-sided; Patient HX: Left sided chest/arm pain TECHNIQUE: Imaging protocol: Radiologic exam of the chest. Views: 1 view. COMPARISON: CR XR CHEST 2V PA LATERAL 07/30/2019 12:21 PM FINDINGS: Lungs: Unremarkable. No consolidation. Pleural spaces: Unremarkable. No pleural effusion. No pneumothorax. Heart/Mediastinum: Unremarkable. No cardiomegaly. Bones/joints: Unremarkable. IMPRESSION: No acute findings. Dictated and Authenticated by: Paulo Aponte MD. Ordering:SACHI Humphreys MD
--- NOTE | 2022-07-19 05:45 | RT.EKG_ITS ---
APPROVED REPORT Exam: Resting ECG Reason for Exam: 2nd trop Patient Location: E HR:73 bpm ECG Measurements Heart Rate 73 AXIS SD 168 P 17 QRSd 152 QRS -15 QT 438 T 136 QTc 484 Conclusion Sinus rhythm...normal P axis, V-rate 60- 99 Left bundle branch block...QRSd>120, broad/notched R ST elevation secondary to IVCD...Multiple VCG criteria I have reviewed and interpreted ECG and agree with software generated interpretation.
[2022-07-19 06:16] LABS: Troponin I < 50 ng/L (<or=60)
[2022-07-19 08:49] LABS: Source Nasal/Nares
[2022-07-19 11:03] LABS: Troponin I < 50 ng/L (<or=60)
--- NOTE | 2022-07-19 12:45 | DI.NM_ITS ---
APPROVED REPORT Exam: Pharmacologic paired with low level exercise Patient Location: In-Patient/ER Room/Bed: ER 7 Stress Nurse: Nannette Donovan RN Ordering Provider:MANDEEP KEARNS, Contact Number: BMI: 34.20 Baseline Rhythm: Sinus Rhythm, LBBB Indications: CHEST PAIN, CAD/STENT Medical History Medical History: CAD, HLD, HTN, LBBB, Panic Disorder, Venous insufficiency Cardiac Medications: Lisinopril, Nitro SL, Metoprolol succinate, Atorvastatin, Aspirin Allergies: No known drug allergies Cardiac Risk Factors: FHX of CAD, HTN, HTN, PVD, CVD, Smoking (former) Previous Cardiac Procedures: PCI in 2019 Pretest Chest Pain Characteristics: No chest pain Exercise History: Physically active Physical Disabilities: None Lung Sounds: Clear to auscultation Heart Sounds: Regular Stress Test Details Test: Pharmacologic stress was paired with low level exercise. Reason for pharmacologic stress test: LBBB. Nuclear Acquisition: Rest Tc-99m/Stress Tc-99m 1 day Rest Isotope: Tc-99m Sestamibi. Dose: 11.0 Date: 07/19/2022 Injection Time: 1245 Stress Isotope: Tc-99m Sestamibi. Dose: 35.0 Date: 07/19/2022 Injection Time: 1410 HR Resting HR Supine: 71 bpm Max Heart Rate (APMHR): 172.074480 bpm Resting HR Standin bpm Target HR (85% APMHR): 146.697021 bpm Max HR Achieved: 148 bpm % of APMHR: 86.05 Recovery HR: 95 bpm Comment: Metoprolol succinate last taken 07/18 AM BP Resting BP Supine: 172/86 mmHg Resting BP Standin/90 mmHg Max BP: 184/100 mmHg Recovery BP: 158/98 mmHg ECG Resting ECG: Sinus Rhythm, LBBB Ectopy: None Stress ECG: Sinus Tachycardia, LBBB ST Change: Unable to determine d/t BBB Arrhythmia: None Recovery ECG: Sinus Rhythm/Tachycardia, LBBB Recovery ST Change: Unable to determine d/t BBB Recovery Arrhythmia: None Clinical Stress Symptoms: Dyspnea, Chest tightness Rate Pressure Product: [id number] Stress ECG Conclusion 1. Resting electrocardiogram showed left bundle branch block 2. Patient underwent testing using combination of low-level exercise and pharmacologic stress with re gadenoson 3. Peak heart rate achieved was 86% of predicted for age 4. The electrocardiographic portion of the test was nondiagnostic due to abnormal resting electrocard iogram (left bundle branch block) 5. There were no significant dysrhythmias 6. See MPI report Stress Test Summary STAGE HR BP SpO2 Symptoms NOTES Supine 71 172/86 Standing 83 166/90 1 min post Lexiscan injection 143 184/100 4/10 chest tightness, SOB 3 min post Lexiscan injection 138 178/100 4/10 chest tightness, SOB improving 6 min post Lexiscan injection 104 158/98 4/10 chest pressure, SOB resolved 9 min post Lexiscan injection 95 chest pressure resolved. Patient received lexiscan injection while walking on treadmill at 1.5 mph, 0% grade. MPI Conclusion Myocardial perfusion is normal without evidence of ischemia or prior infarction EF 54%, normal wall motion Radiologist Interpretation Radiologist Interpretation by: Petr Weinberg MD Interpretation Date/Time: 07/19/2022 16:36:37
[2022-07-19] MEDS: Regadenoson 0.4 MG/5 ML SYR IVP (14:00)
[2022-07-19 14:53] LABS: COVID-19 PCR Negative (Negative)
--- NOTE | 2022-07-19 16:02 | W.EDPROG ---
Date of service: 07/19/22 Time of Service: 16:02 Medical Decision Making Patient had been held in the emergency department pending an opening to complete his inpatient work-up on the floor. He underwent serial cardiac troponins and a negative cardiac stress test. He felt improved. Given the lack of a floor bed, a consult was performed by the medicine service patient deemed appropriate for discharge to home. He is stable at this time we will ask care management to arrange a follow-up with his primary care physician, Dr. Nava. Discharge Plan Disposition Patient Disposition: HOME Condition: Stable Discharge Details Clinical Impression: Chest pain Primary Care Provider: Joselo Vega ED Provider: Petr Pereira [place] Meds and New Rx's Prescriptions: Continued aspirin [Adult Aspirin Regimen] 81 mg tablet,delayed release (DR/EC) 81 mg PO DAILY clonazepam 0.5 mg tablet 0.5 mg PO DAILY PRN PRN sertraline 100 MG tablet 100 mg PO QPM lisinopril 20 mg Tablet 20 mg PO DAILY atorvastatin 40 mg Tablet 40 mg PO QPM metoprolol succinate 50 mg Tablet Extended Release 24 Hr 50 mg PO DAILY prednisolone acetate 1 % Drops,Suspension 1 drp ophthalmic (eye) BID PRN Rx Instructions: L eye nitroglycerin 0.4 mg Tablet, Sublingual 0.4 mg SUBLINGUAL Q5M PRN clobetasol 0.05 % Ointment 1 applic TOPICAL DAILY PRN Discharge Instructions Instructions: Chest Pain (ED) Additional Instructions: We will ask our care management team to arrange a follow-up for you in primary care clinic. Home to rest today. Continue all routinely prescribed medications. Your work-up today included serial cardiac troponins as well as nuclear stress test.
--- NOTE | 2022-07-19 16:14 | NUR.NOTE ---
Nursing Note: Referral faxed to PCP for chest pain in 1 week
--- NOTE | 2022-07-19 16:29 | W.MEDCONSULT ---
Date of service: 07/19/22 Time of Service: 16:29 Assessment and Plan Assessment and plan (1) CAD (coronary artery disease), [place] coronary artery: Assessment and plan: Previous stent. Pain free upon arrival to ED. NM MPI stress test w/o ichemic findings or infarction. Cont daily aspirin metoprolol and statin. PCP follow up in 1-2 weeks. (2) HTN (hypertension): Assessment and plan: Cont metoprolol and lisinopril. Optimize control. History of Present Illness History of Present Illness Chief Complaint: chest pain Narrative: This is a 46 yo male with a PMH of CAD/stent, panic disorder. He presented to the ED after waking from sleep appx 1 hour before arrival and noting left chest pain and left arm numbness. Initially had some mild nausea, diaphoresis and lightheadedness. No palpitations, SOA. + increased fatigue and occasional left arm numbness over the last several weeks. Presenting symptoms similar to previous episode that resulted in a coronary stent. Aspirin administered ED eval showed no EKG changes. Negative troponins, CXR w/o acute findings. NM MPI ordered. 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 Surgical History History of cardiac catheterization 08/02/19 Cardiac Cath @ [facility] [place] Family History Father Cancer Agent orange exposure Heart disease Multiple MIs, at age 50 Mother Cancer COPD (chronic obstructive pulmonary disease) Social History Smoking/Tobacco Use Status: Former Tobacco Use Quit Date: 11/22/03 Smoking risk assessment performed?: Yes Alcohol Intake: current Alcohol Intake frequency: 0-2 drinks per day Alcohol type: beer Drug use: Never Substance use type: does not use Details: alcohol: t-1 current occupation: [employer] employee Do you feel safe at home: Yes Do you feel safe in your relationship?: Yes Exam Narrative Exam Narrative: Reviewed lab, vitals and ED physical exam. Pt did not come to the floor and is being discharged from the ED. Results Last Vital Signs Temp 36.8 C 07/19/22 15:46 Pulse 79 07/19/22 15:46 Resp 20 07/19/22 13:30 BP 137/93 H 07/19/22 15:46 Pulse Ox 94 07/19/22 15:46 Labs Result diagrams: 07/19/22 03:02 07/19/22 03:02 Labs: Laboratory Results - last 24 hr 07/19/22 07/19/22 07/19/22 03:02 03:02 05:55 WBC 6.83 RBC 4.78 Hgb 15.1 Hct 43.4 MCV 91 MCH 31.6 MCHC 34.8 RDW 11.9 Plt Count 191 MPV 10.3 Immature Gran % 1.0 Neutrophils % 45.8 Lymphocytes % 37.2 Monocytes % 11.6 Eosinophils % 3.5 Basophils % 0.9 Nucleated RBC % 0.0 Absolute Neutrophils 3.13 Absolute Lymphocytes 2.54 Absolute Monocytes 0.79 Absolute Eosinophils 0.24 Absolute Basophils 0.06 Sodium 140 Potassium 3.5 Chloride 104 Carbon Dioxide 27.7 Anion Gap 8.3 BUN 14 Creatinine 0.8 Est GFR (CKD-EPI 2020) 109.17 Glucose 126 H Calcium 8.7 Magnesium 1.9 Total Bilirubin 0.5 AST 22 ALT 49 Alkaline Phosphatase 80 Troponin I < 50 < 50 Total Protein 6.8 Albumin 3.7 COVID-19 Source SARS-CoV-2 (PCR) 07/19/22 07/19/22 07/19/22 08:42 10:00 10:20 WBC RBC Hgb Hct MCV MCH MCHC RDW Plt Count MPV Immature Gran % Neutrophils % Lymphocytes % Monocytes % Eosinophils % Basophils % Nucleated RBC % Absolute Neutrophils Absolute Lymphocytes Absolute Monocytes Absolute Eosinophils Absolute Basophils Sodium Potassium Chloride Carbon Dioxide Anion Gap BUN Creatinine Est GFR (CKD-EPI 2020) Glucose Calcium Magnesium Total Bilirubin AST ALT Alkaline Phosphatase Troponin I Cancelled < 50 Total Protein Albumin COVID-19 Source Nasal/Nares SARS-CoV-2 (PCR) Negative
== END 2022-07-19 16:21 | disposition home or self-care (01) ==
PROVIDERS: Family Medicine; Emergency Provider Emergency Medicine; PCP Internal Medicine
DX: I25.10 Atherosclerotic heart disease of native coronary artery without angina pectoris (principal); I10 Essential (primary) hypertension; R07.89 Other chest pain
CPT/HCPCS: 36415; 78452; 80053; 87635; 93005; 96374; 99283; 99284; 71045; 83735; 84484; 85025; 93010; 93017; J2785

== ENCOUNTER 2023-12-19 11:32 | Outpatient (CLI) | payer SELFPAY ==
[2023-12-19 17:27] LABS: D-Dimer 353 ng/mlFEU (<500)
== END 2023-12-19 11:33 ==
LOC: LBO 12-20 11:33
PROVIDERS: PCP Internal Medicine; Visit Provider Nurse Practitioner Family
DX: R04.2 Hemoptysis (principal)
CPT/HCPCS: 36415; 85379

== ENCOUNTER 2024-01-17 21:37 | Outpatient (REF) | payer SELFPAY ==
[2024-01-17 22:11] LABS: ALT 49 U/L (16-63); AST 29 U/L (15-37); Albumin 4.2 g/dL (3.4-5.0); Alkaline Phosphatase 76 U/L (46-116); Anion Gap 5.1 mmol/L (3-11); BUN 13 mg/dL (7-18); Bilirubin, Total 1.1 mg/dL (0.2-1.0); CO2 28.9 mmol/L (21.0-32.0); CREATININE 0.8 mg/dL (0.70-1.30); Calcium 9.1 mg/dL (8.5-10.1); Chloride 103 mmol/L (98-107); Estimated GFR 107.82 (mL/min/1.73m2); Glucose 89 mg/dL (74-106); Potassium 4.5 mmol/L (3.5-5.1); Sodium 137 mmol/L (136-145); Total Protein 7.3 g/dL (6.4-8.2)
[2024-01-17 23:09] LABS: Hemoglobin A1C 5.7 % (<5.7)
== END 2024-01-17 21:38 | disposition home or self-care (01) ==
LOC: NCHCN 21:37
PROVIDERS: PCP Internal Medicine; Visit Provider Family Medicine
DX: R73.03 Prediabetes (principal); I10 Essential (primary) hypertension
CPT/HCPCS: 80053; 83036

== ENCOUNTER 2025-01-10 08:08 | Day surgery (SDC) | payer BC, SELFPAY ==
[2025-01-10 08:10] VITALS: BP 146/108; PULSE 77; RESP 20; TEMP 36.4; O2SAT 96
[2025-01-10] MEDS: Lactated Ringers 1,000 ML 80 ML IV (09:15)
--- NOTE | 2025-01-10 09:25 | ANES.PREOP_ITS ---
General Info Date of Service Date Performed: 01/10/25 Height: 5 ft 8 in Weight: 99.6 kg Body Mass Index (BMI): 33.3 Surgical Procedure: Operation Date: 01/10/25 10:05 Proposed Procedure Side Surgeon p Pascual Dueñas MD Meds Allergies and Home Medications Allergies Allergy/AdvReac Type Severity Reaction Status Date / Time No Known Allergies Allergy Verified 01/10/25 08:29 Home Medication ?Medication ?Instructions ?Recorded sertraline 100 mg tablet 100 mg PO QPM 12/02/17 clonazepam 0.5 mg tablet 0.5 mg PO DAILY PRN PRN 12/20/18 aspirin 81 mg tablet,delayed 81 mg PO DAILY 09/24/19 release (Adult Aspirin Regimen) atorvastatin 40 mg tablet 40 mg PO QPM 10/01/19 metoprolol succinate 50 mg 50 mg PO DAILY 10/01/19 tablet,extended release 24 hr nitroglycerin 0.4 mg sublingual 0.4 mg sublingual Q5M PRN 10/01/19 tablet prednisolone acetate 1 % eye 1 drp ophthalmic (eye) BID PRN 10/01/19 drops,suspension lisinopril 20 mg tablet 20 mg PO DAILY 07/19/22 betamethasone dipropionate 0.05 % 1 applic topical BID 11/25/22 topical ointment bisacodyl 5 mg tablet,delayed 5 mg PO ONCE colonscopy bowel prep 12/23/24 release (Dulcolax (bisacodyl)) #4 tabs polyethylene glycol 3350 17 238 g PO ONCE colonoscopy prep 12/23/24 gram/dose oral powder #238 grams Current Visit Medications: Current Medications Generic Name Dose Route Start Last Admin Trade Name Freq PRN Reason Stop Dose Admin Ringer's Solution 1,000 mls @ 80 mls/hr 01/10/25 06:00 IV 01/10/25 23:59 INFUSION VAN IV Miscellaneous Supplies 1 each 01/10/25 06:00 Iv Access IV 01/10/25 23:59 DIRECTED VAN Sodium Chloride 0 ml 01/10/25 06:00 Normal Saline Flush 10 Ml Syr IV 01/10/25 23:59 PRN PRN Sodium Chloride 0 ml 01/10/25 06:00 Normal Saline 10 Ml Vial IJ 01/10/25 23:59 DIRECTED PRN Sterile Water 0 ml 01/10/25 06:00 Water,Injection,Sterile 10 Ml Vial IJ 01/10/25 23:59 DIRECTED PRN [facility] Active Problems Active Problems: Problem Status Onset Code Left lateral epicondylitis Acute M77.12 Dupuytren's contracture of right hand Acute M72.0 Dupuytren's contracture of left hand Acute M72.0 Discharge planning issues Acute Z02.9 Chest pain Acute R07.9 Bilateral carpal tunnel syndrome Acute G56.03 Panic disorder Acute F41.0 Medical History Medical History Preventative health care Obesity Asymptomatic varicose veins of unspecified lower extremity Alcohol abuse, uncomplicated pt. 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 F/U with Dr. Fontana @ [facility] per pt states < 1 yr ago Tobacco Smoking/Tobacco Use Status: Former Tobacco Use Passive smoking exposure: No Alcohol Alcohol Intake: current Alcohol intake frequency: 0-2 drinks per day Alcohol type: beer Substance Use Substance use: Never Substance use type: does not use Vital Signs and Lab Results Vital Signs Most Recent Vital Signs in EMR: Most Recent Vital Signs Temp Pulse Resp BP Pulse Ox 36.4 C L 77 20 146/108 H 96 01/10/25 08:10 01/10/25 08:10 01/10/25 08:10 01/10/25 08:10 01/10/25 08:10 Lab Results Blood Type / Crossmatch: No Data to Display Complete Blood Count: No Data to Display Complete Metabolic Panel: No Data to Display Liver Function Panel: No Data to Display Coagulation Panel: No Data to Display Cardiac Panel: No Data to Display Arterial Blood Gas: No Data to Display Venous Blood Gas: No Data to Display Pancreas Panel: No Data to Display Thyroid Panel: No Data to Display Infectious Disease: No Data to Display Blood Cultures: No Data to Display Toxicology Panel: No Data to Display Imaging and Studies Imaging and Studies Study information below may be from another EMR and interpreted by another provider. Please see original notes in EMR for more complete details. Stress Test Summary: 07/19/22: Stress ECG Conclusion 1. Resting electrocardiogram showed left bundle branch block 2. Patient underwent testing using combination of low-level exercise and pharmacologic stress with regadenoson 3. Peak heart rate achieved was 86% of predicted for age 4. The electrocardiographic portion of the test was nondiagnostic due to abnormal resting electrocardiogram (left bundle branch block) 5. There were no significant dysrhythmias 6. See MPI report Stress Test Summary [id number] 1 min post Lexiscan [id number] chest tightness, SOB 3 min post Lexiscan [id number] chest tightness, SOB improving 6 min post Lexiscan [id number] chest pressure, SOB resolved 9 min post Lexiscan [id number] pressure resolved. Patient received lexiscan injection while walking on treadmill at 1.5 mph, 0% grade. MPI Conclusion Myocardial perfusion is normal without evidence of ischemia or prior infarction EF 54%, normal wall motion Echocardiogram Summary: 07/31/19: Conclusion Left Ventricle : The left ventricle is normal size. There is normal left ventricular wall thickness. The left ventricular diastolic function is normal. Paradoxical septal motion consistent with conduction abnormality. LVEF is 55- 60%. Right Ventricle : The right ventricle is normal size. The right ventricular systolic function is normal. Atria : The left atrium size is normal. The right atrium size is normal. Aortic Valve : The aortic valve is normal in structure. There is no aortic valvular stenosis. No aortic regurgitation is present. Mitral Valve : There is mitral annular calcification. Valve is mildly thickened There is no mitral valve regurgitation noted. No evidence of mitral valve stenosis. Tricuspid Valve : The tricuspid valve is normal in structure. Trace tricuspid regurgitation. Peak gradient =32.5 mmHg. RVSP is <40mmHg Pulmonic Valve : The pulmonary valve is normal in structure. Trace pulmonic regurgitation. Great Vessels : The IVC is normal in size and collapses >50% with inspiration. Pericardium : There is no pericardial effusion. Anesthesia Assessment and Plan Anesthesia History Personal History: No History of Anesthesia Complications Family History: No Family History of Anesthesia Complications Exercise Tolerance Exercise Tolerance: Metabolic Equivalents>4 Cardiac & Pulmonary Exam Cardiac Exam: Normal S1/S2 Heart Sounds Pulmonary Exam: Clear Bilateral Breath Sounds Implantable Cardiac Device Does patient have a Pacemaker or an ICD?: No Airway Exam Known Difficult Airway: No Mallampati Class: 2 Mouth Opening: Normal (> 3cm) Thyromental Distance: Greater than 3 cm Neck Range of Motion: Full ROM Neck Circumference: Normal Teeth Condition: Removable Dentures/Plates Upper ASA Classification ASA Score: ASA 3 Emergency Case?: No NPO Status NPO Status: NPO Clears >2 hours, Solids >8 hours Anesthesia Plan Resuscitation Status: Full Code Anesthesia Technique: MAC Anesthesia Airway Planned: Natural Airway Monitors Used: Standard Monitors
[2025-01-10 10:15] VITALS: BMI 33.3
--- NOTE | 2025-01-10 10:48 | COLE_ITS ---
Date of service: 01/10/25 Time of Service: 10:48 Colonoscopy Report Date of procedure: 01/10/25 Pre-op diagnosis general: Screening Post-op diagnosis procedure note: other (Rectal polyps) Procedure: Colonoscopy with cold snare and cold biopsy forceps polypectomy Surgeon: Tiarra Dueñas Anesthesia Type: General:No Airway Estimated blood loss (mL): 0 Pathology: other (Rectal polyps) Complications: None Disposition: same day Indications: Patient presents for screening colonoscopy Findings: 5 polyps were found in the rectum ranging in size between 4 and 8 mm. These polyps were removed with combination of cold snare polypectomy and cold biopsy piecemeal technique. All polyp material was retrieved for pathology. The bowel prep was excellent Procedure Description: After the risks, benefits, and alternatives of the procedure were thoroughly explained, informed consent was obtained. The Patient is brought to the [facility] room and time out is performed confirming patient identity, nature of procedure. Patient is connected to monitoring devices including O2 sat, EKG and given supplemental oxygen per anesthesia. After appropriate anesthetic is obtained, patient is placed in the left lateral decubitus position and digital rectal exam performed with the findings noted . The colonoscope is inserted through the anus and guided under direct vision to the proximal colon as confirmed by presence of the appendiceal orifice and the ileocecal valve. The colonoscope is then slowly withdrawn , inspecting all aspects of the mucosa completely. Findings and any associated intervention, are noted above. The colonoscope was then completely withdrawn from the patient and the procedure terminated. The patient tolerated the procedure well and is transferred back to the Day surgery unit in stable condition.
--- NOTE | 2025-01-10 10:50 | W.PM.DSUDISC ---
Date of service: 01/10/25 Discharge Plan Disposition Patient Disposition: Home Discharge Details Attending Provider: Tiarra Dueñas Primary Care Provider: Trevor Mancia Home Meds and New Rx's Prescriptions: No Action polyethylene glycol 3350 17 gram/dose powder 238 g PO ONCE Qty: 238 0RF Rx Instructions: take per colonoscopy instructions bisacodyl [Dulcolax (bisacodyl)] 5 mg tablet,delayed release (DR/EC) 5 mg PO ONCE Qty: 4 0RF Rx Instructions: take per colonoscopy instructions aspirin [Adult Aspirin Regimen] 81 mg tablet,delayed release (DR/EC) 81 mg PO DAILY clonazepam 0.5 mg tablet 0.5 mg PO DAILY PRN PRN betamethasone dipropionate 0.05 % ointment 1 applic topical BID sertraline 100 MG tablet 100 mg PO QPM lisinopril 20 mg Tablet 20 mg PO DAILY atorvastatin 40 mg Tablet 40 mg PO QPM metoprolol succinate 50 mg Tablet Extended Release 24 Hr 50 mg PO DAILY prednisolone acetate 1 % Drops,Suspension 1 drp ophthalmic (eye) BID PRN Rx Instructions: L eye nitroglycerin 0.4 mg Tablet, Sublingual 0.4 mg SUBLINGUAL Q5M PRN Discharge Instructions Additional Instructions: Multiple polyps were removed from your rectum. You will receive a pathology report and a recommendation for your next colonoscopy. You may notice blood spotting after the rectal polypectomies. If you start passing large clots, you should call the office or report to the emergency room. I recommend that you do not take any aspirin for 1 week. Discharge Orders Discharge Orders: Discharge Order (Routine); Ordered 01/10/25 Ordered By: Tiarra Dueñas
[2025-01-10 10:56] VITALS: BP 123/81; PULSE 69; RESP 16; TEMP 36.3; O2SAT 94
--- NOTE | 2025-01-10 11:04 | W.ANESPOSTOP ---
Postoperative Evaluation Date, Time and Location Date Performed: 01/10/25 Time Performed: 10:57 Patient Location: Day Surgery Unit Vital Signs Most Recent Imported Vital Signs: Most Recent Vital Signs Temp Pulse Resp BP Pulse Ox 36.3 C L 69 16 123/81 94 01/10/25 10:56 01/10/25 10:56 01/10/25 10:56 01/10/25 10:56 01/10/25 10:56 Pain Score Most Recent Pain Score: Most Recent Pain Score Pain Level 0 01/10/25 10:56 Assessment Mental Status: Awake (Alert & Oriented to Patient Baseline) Airway and Respiratory Function: Patent airway with normal (patient baseline) respiratory exam Cardiovascular Function: Hemodynamically Stable Hydration Status: Adequately Hydrated Nausea & Vomiting: No Nausea or Vomiting Pain: Pt. Denies Any Pain Peripheral Nerve Block: Patient did not receive a nerve block
[2025-01-10 11:28] VITALS: BP 123/81; PULSE 94; RESP 16; TEMP 36.3; O2SAT 94
== END 2025-01-10 08:09 | disposition home or self-care (01) ==
PROVIDERS: PCP Family Medicine; Visit Provider Surgery
PROC: 0DJD8ZZ Inspection of Lower Intestinal Tract, Via Natural or Artificial Opening Endoscopic (ICD-10-PCS; CPT 45378; principal; 2025-01-10 10:00)
DX: Z12.11 Encounter for screening for malignant neoplasm of colon (principal); K63.5 Polyp of colon
CPT/HCPCS: 45385; 88305; J2003; J2704

== ENCOUNTER 2025-01-14 13:13 | Outpatient (REF) | payer BC, SELFPAY ==
[2025-01-14 15:05] LABS: ALT 61 U/L (16-63); AST 23 U/L (15-37); Albumin 4.1 g/dL (3.4-5.0); Alkaline Phosphatase 76 U/L (46-116); Anion Gap 5.3 mmol/L (3-11); BUN 16 mg/dL (7-18); Bilirubin, Total 0.9 mg/dL (0.2-1.0); CO2 30.7 mmol/L (21.0-32.0); CREATININE 0.8 mg/dL (0.70-1.30); Calculated LDL 58 mg/dL (<100); Chloride 107 mmol/L (98-107); Cholesterol 125 mg/dL (<200); Estimated GFR 107.15 (mL/min/1.73m2); Glucose 120 mg/dL (74-106); HDL Cholesterol 54 mg/dL (>or=40); Potassium 5.3 mmol/L (3.5-5.1); Sodium 143 mmol/L (136-145); Total Protein 6.9 g/dL (6.4-8.2); Triglyceride 67 mg/dL (<150)
[2025-01-14 15:14] LABS: HCT 46.4 % (40.0-50.0); MCH 31.4 pg (27.0-33.0); MCHC 34.5 % (32.0-36.0); MCV 91 fL (80-95); MPV 10.6 fL (8.0-11.0); Platelet Count 227 10^3/uL (130-400); RBC 5.09 10^6/uL (4.36-5.78); RDW-SD 40.2 fL; WBC 8.08 10^3/uL (4.4-10.8)
[2025-01-14 15:44] LABS: Hemoglobin A1C 5.6 % (<5.7)
== END 2025-01-14 13:14 | disposition home or self-care (01) ==
LOC: NCHCN 13:13
PROVIDERS: PCP Family Medicine; Visit Provider Nurse Practitioner Family
DX: E66.9 Obesity, unspecified (principal); I25.10 Atherosclerotic heart disease of native coronary artery without angina pectoris; I10 Essential (primary) hypertension
CPT/HCPCS: 80053; 80061; 85027; 83036

== ENCOUNTER 2025-01-29 15:49 | Outpatient (REF) | payer BC, SELFPAY ==
[2025-01-29 21:37] LABS: COMMENT (LAB VIEW ONLY) 42.65 mg/dL
== END 2025-01-29 15:50 | disposition home or self-care (01) ==
LOC: NCHCN 15:49
PROVIDERS: PCP Family Medicine; Visit Provider Nurse Practitioner Family
DX: I10 Essential (primary) hypertension (principal)
CPT/HCPCS: 82043; 82570

== ENCOUNTER 2025-02-08 02:59 | Emergency (ER) | payer BC, SELFPAY ==
[2025-02-08] VITALS (38 sets, daily range): BP systolic 145–220; BP diastolic 82–133; PULSE 54–90; RESP 18; TEMP 36.5; O2SAT 92–97
[2025-02-08] MEDS: Lactated Ringers 1,000 ML 1000 ML IV (03:35)
[2025-02-08] MEDS: diazePAM 10 MG/2 ML SYR 5 MG IVP (03:37)
--- NOTE | 2025-02-08 03:39 | ED.GENADUL_ITS ---
Discharge Plan Disposition Patient Disposition: Home Condition: Good Discharge Details Clinical Impression: Muscle spasms of neck, Headache Primary Care Provider: Tsering Manzo ED Provider: Niranjan Willams Home Meds and New Rx's Prescriptions: New cyclobenzaprine 10 mg tablet 10 mg PO TID Qty: 14 0RF lidocaine [Lidoderm] 5 % adhesive patch,medicated 1 patch Topical Q24H Qty: 15 0RF No Action polyethylene glycol 3350 17 gram/dose powder 238 g PO ONCE Qty: 238 0RF Rx Instructions: take per colonoscopy instructions aspirin [Adult Aspirin Regimen] 81 mg tablet,delayed release (DR/EC) 81 mg PO DAILY clonazepam 0.5 mg tablet 0.5 mg PO DAILY PRN PRN betamethasone dipropionate 0.05 % ointment 1 applic topical BID sertraline 100 MG tablet 100 mg PO QPM lisinopril 20 mg Tablet 20 mg PO DAILY atorvastatin 40 mg Tablet 40 mg PO QPM metoprolol succinate 50 mg Tablet Extended Release 24 Hr 50 mg PO DAILY prednisolone acetate 1 % Drops,Suspension 1 drp ophthalmic (eye) BID PRN Rx Instructions: L eye nitroglycerin 0.4 mg Tablet, Sublingual 0.4 mg SUBLINGUAL Q5M PRN Discharge Instructions Instructions: Headache, Adult ED Additional Instructions: At this time your workup is returned very reassuring. There is no evidence of bleed in your brain, tumor, aneurysm or other infection. I suspect a major component of your headache is from muscle spasms in your neck. Please continue to take Tylenol and Motrin for the pain. You can take 1000 mg of Tylenol and 800 mg of Motrin every 6 hours. These are the maximum doses. Please apply the Lidoderm patches to your neck. Please take the cyclobenzaprine to help relax your neck muscles. The cyclobenzaprine can make you feel somewhat sleepy. Please do not shoot guns, climb ladders, swim, or operate heavy machinery or drive while on the medication. If you notice any worsening of your symptoms, or any new symptoms such as vomiting, diarrhea, fever, chills, shortness of breath, chest pain, numbness, weakness, or fainting , please return immediately to the emergency department for reevaluation. Please follow up with your primary care provider as soon as possible for reassessment and reevaluation. As always, it was a pleasure participating in your medical care today. Referrals: Tsering Manzo [Primary Care Provider] - [facility] General Date/Time Provider Initiated Documentation: 02/08/25 03:02 . 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 Who presents today for headache and neck pain. Patient states that 2 days ago he was flying back from a trip from [place]. While the aircraft was descending he developed a sudden onset sharp pain in the back of his neck, that radiated up behind his left eye. It felt like a stabbing sensation. There was no turbulence or trauma during this event. Gradually the headache and pain resolved, and transition to a dull ache in the back of his head to the front of his head. It also continued to include an ache in his neck. The headache has persisted, however in the last 12 hours it is gotten somewhat worse again. He denies fever or chills. He denies vision changes. He does admit to some nausea but no vomiting. He denies any numbness tingling or weakness. He denies any chest pain or shortness of breath. No personal or family history of Sedrick-Danlos syndrome, Marfan syndrome, polycystic kidney disease, aneurysms or dissections. No recent sharp movements or trauma to the neck. No previous history of headaches like this. Related Data Home Medications ?Medication ?Instructions ?Recorded ?Confirmed sertraline 100 mg tablet 100 mg PO QPM 12/02/17 02/08/25 clonazepam 0.5 mg tablet 0.5 mg PO DAILY PRN PRN 12/20/18 02/08/25 aspirin 81 mg tablet,delayed 81 mg PO DAILY 09/24/19 02/08/25 release (Adult Aspirin Regimen) atorvastatin 40 mg tablet 40 mg PO QPM 10/01/19 02/08/25 metoprolol succinate 50 mg 50 mg PO DAILY 10/01/19 02/08/25 tablet,extended release 24 hr nitroglycerin 0.4 mg sublingual 0.4 mg sublingual Q5M PRN 10/01/19 02/08/25 tablet prednisolone acetate 1 % eye 1 drp ophthalmic (eye) BID PRN 10/01/19 02/08/25 drops,suspension lisinopril 20 mg tablet 20 mg PO DAILY 07/19/22 02/08/25 betamethasone dipropionate 0.05 % 1 applic topical BID 11/25/22 02/08/25 topical ointment polyethylene glycol 3350 17 238 g PO ONCE colonoscopy prep 12/23/24 02/08/25 gram/dose oral powder #238 grams cyclobenzaprine 10 mg tablet 10 mg PO TID #14 tabs 02/08/25 lidocaine 5 % topical patch 1 patch topical Q24H #15 ea 02/08/25 (Lidoderm) Previous Rx's ?Medication ?Instructions ?Recorded polyethylene glycol 3350 17 238 g PO ONCE colonoscopy prep 12/23/24 gram/dose oral powder #238 grams cyclobenzaprine 10 mg tablet 10 mg PO TID #14 tabs 02/08/25 lidocaine 5 % topical patch 1 patch topical Q24H #15 ea 02/08/25 (Lidoderm) Allergies Allergy/AdvReac Type Severity Reaction Status Date / Time No Known Allergies Allergy Verified 02/08/25 03:47 General Stated Complaint: GenMedical FLYNN: 3 Exam Narrative Exam Narrative: 1.Const: Well-nourished, Well-developed, appearing stated age 2.Eyes: PERRL, no conjunctival injection, and symmetrical lids. 3.ENT: Atraumatic external nose and ears. Moist MM. Neck: Symmetric, trachea midline, No thyromegaly. Patient demonstrates good movement of cervical neck. There is no nuchal rigidity, but there is mild nuchal tenderness. Patient is able to flex the neck without any difficulty or severe pain. Negative Kernig's and Brudzinski sign. 4.CVS: +S1/S2, Peripheral pulses 2+ and equal in all extremities. Brisk capillary refill in all extremities. 5.RESP: Unlabored respiratory effort. Clear to auscultation bilaterally. No wheezes rales or rhonchi 6.GI: Soft, Nontender/Nondistended, No hepatosplenomegaly. No guarding or rebound. 7.MSK: Normocephalic/Atraumatic, Extremities w/o deformity or ttp No cyanosis or clubbing, Normal movement of all extremities 8.Skin: Warm, Dry. No rashes or lesions. 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 Sensation grossly intact, no focal neurologic deficits. All 6 cardinal planes of vision are fully intact for the right eye but absent in the left eye. No evidence of rotatory or vertical nystagmus. The patient demonstrated a normal vxvnik-duth-vqsopp, good dexterity. There was no evidence of dysdiadochokinesia. Patient was able to ambulate without difficulty. There was no wide-based gait. Romberg testing was normal. Aexf-mt-[id number] testing was normal. Sensation was intact bilaterally as well as muscle strength bilaterally for all extremities. Patient was able to verbalize butter cup with no slurring, or miss pronunciation. 10.Psych: (AAO) x3. Appropriate mood and affect Course Vital Signs Vital signs: Vital Signs Temperature 36.5 C 02/08/25 03:03 Pulse 73 02/08/25 03:03 Respiratory Rate 18 02/08/25 03:03 Blood Pressure 220/133 H 02/08/25 03:03 Pulse Oximetry 96 02/08/25 03:03 Temperature 36.5 C 02/08/25 03:06 Pulse 82 02/08/25 03:06 Respiratory Rate 18 02/08/25 03:06 Blood Pressure 220/133 H 02/08/25 03:06 Pulse Oximetry 97 02/08/25 03:06 Oxygen Delivery Method Room Air 02/08/25 03:06 Pain Level 8 02/08/25 03:03 Procedure Lumbar Puncture Date of Procedure: 02/08/25 Time of procedure: 06:40 Provider that performed the procedure: Niranjan Willams Indication: Diagnostic Patient Consented: Verbally and Written Standard Time Out Performed: Yes Sterility: Sterile Local anesthetic: Lidocaine 1% Amount of local anesthetic used(mL): 5 Placement Site: L3-L4 Interspace Spinal Needle Type: Quincke 22 Gauge Needle Length: 3.5 inch Lumbar Puncture Procedure: Site Prepped, Sterile Drape Placed, 1% Lidocaine to skin and subcutaneous tissue with 25G needle, Introducer Needle Used, Spinal Needle Placed, Negative Heme, Positive CSF Flow (Opening CSF pressure was 19), CSF Specimen placed into Tubes in Sequential Order and Specimen Labeled, Sent to Lab Patient Position: Lateral decubitus Number of Attempts(see previous attempts in note section): 1 Opening CSF Pressure(cmH20): 19 Paresthesia: None Ultrasound: Not used Procedure Tolerated: No Complications Procedure Outcome: Successful Medical Decision Making This is a pleasant 49-year-old male with a past medical history of previous coronary artery disease with stent in 2018, chronic left blind eye s econdary to previous iritis years ago. Who presents today for headache and neck pain. Patient states that 2 days ago he was flying back from a trip from [place]. While the aircraft was descending he developed a sudden onset sharp pain in the back of his neck, that radiated up behind his left eye. It felt like a stabbing sensation. There was no turbulence or trauma during this event. Gradually the headache and pain resolved, and transition to a dull ache in the back of his head to the front of his head. It also continued to include an ache in his neck. The headache has persisted, however in the last 12 hours it is gotten somewhat worse again. He denies fever or chills. He denies vision changes. He does admit to some nausea but no vomiting. He denies any numbness tingling or weakness. He denies any chest pain or shortness of breath. No personal or family history of Sedrick-Danlos syndrome, Marfan syndrome, polycystic kidney disease, aneurysms or dissections. No recent sharp movements or trauma to the neck. No previous history of headaches like this. Physical exam demonstrates negative Kernig's and Brudzinski sign but mild nuchal tenderness. Normal neurologic assessment aside for the lack of vision in his left eye. Patient is notably hypertensive, in the 220s over 130. He states that he has recently increased his antihypertensive medications with PCP. Differential is broad but includes muscle spasm of the neck or mild migraine. However vertebral artery dissection is certainly on the differential with the atypical historical component. Aneurysmal bleed is also of concern with the sudden onset of the severe headache. Meningitis less likely with no fever or chills. Tumor less likely with a rapid onset of his symptomatology. Muscle spasms from the neck could also certainly elicit a tension headache type scenario. HypertensiveEmergency could also bring about symptomatology similar to this. We we will start the patient on a Valium muscle relaxant, migraine cocktail of Ofirmev, IV fluids, Compazine and Benadryl. We will get a CT/CTA for evaluation of vertebral artery dissection, aneurysm, or tumor. We will have further discussion with the patient for potential lumbar puncture. Will monitor closely and reassess. [address] scan read has returned negative no evidence of dissection, tumor or bleed., laboratory workup shows no white count, bandemia, left shift. PT PTT and INR normal. Lactate normal. Electrolytes and renal function normal. Procalcitonin less than 0.1. Symptoms inconsistent with an infectious etiology of significance. CT scan shows no evidence of bleed or aneurysm, however if the patient did have a small subarachnoid hemorrhage then we would certainly be out of the 6-hour window for CT diagnostics of this. Understanding this, I had a very long discussion with the patient and his sister who is at bedside. We discussed my concern for potential life-threatening bleed with his hypertension, atypical headache nature, and history. After weighing the risks and benefits of lumbar puncture, patient would like to move forward with lumbar puncture. Patient consents verbally and written. Risks and benefits were discussed. Patient understands this of the procedure. Lumbar puncture was performed without difficulty or complication with single attempt. Pending results. 7:45 AM Blood pressure has notably improved without antihypertensive intervention. On reassessment patient's headache is nearly completely resolved and he feels much better. Suspect that blood pressure may have been a symptom and secondary to his headache. Lumbar puncture results have returned, no xanthochromia. Tube 1 had 111 RBCs, tube 4 had only 13 RBCs suggestive of a traumatic tap. To 1 RBCs notably low compared to what would have been expected for intracranial hemorrhage. With no xanthochromia, the resolution of his symptoms, and the CSF findings, symptoms are clinically inconsistent with subarachnoid hemorrhage and bleed. With the patient's significant improvement, and a negative CT scan, lumbar puncture, and a normal neurologic assessment I do feel that discharge is reasonable at this time. Patient does have physical therapy follow-up that is being scheduled by his PCP. We will give cyclobenzaprine Lidoderm patches prescriptions for home. I have extensively reviewed the treatment plan and discharge instructions with the patient and their family. I have addressed all patient concerns at this time. The patient and family was made aware of what symptoms to monitor for that would warrant a return to the emergency department. Discussed the plan with the patient and family, they demonstrate verbal understanding and agreement with our assessment and plan at this time. The documentation in this chart was dictated using [employer] dictation software. Please excuse any dictation errors. FINDINGS: ANTERIOR CIRCULATION: Right internal carotid artery: Intracranial segment is patent with no significant stenosis or occlusion. No aneurysm. Right middle cerebral artery: No occlusion or significant stenosis. No aneurysm. Right anterior cerebral artery: No occlusion or significant stenosis. No aneurysm. Left internal carotid artery: Intracranial segment is patent with no significant stenosis. No aneurysm. Left middle cerebral artery: No occlusion or significant stenosis. No aneurysm. Left anterior cerebral artery: No occlusion or significant stenosis. No aneurysm. POSTERIOR CIRCULATION: Right vertebral artery: No occlusion or significant stenosis. No aneurysm. Left vertebral artery: No occlusion or significant stenosis. No aneurysm. Basilar artery: No occlusion or significant stenosis. No aneurysm. Right posterior cerebral artery: No occlusion or significant stenosis. No aneurysm. Left posterior cerebral artery: No occlusion or significant stenosis. No aneurysm. HEAD: Brain: Normal. No hemorrhage. Unremarkable white matter. No mass effect. Cerebral ventricles: Normal. No ventriculomegaly. Bones: Unremarkable. No acute fracture. Paranasal sinuses: Mild mucosal thickening in the right frontal sinus, bilateral anterior ethmoidal air cells. Mild mucosal thickening in the bilateral sphenoidal sinuses. Small retention cyst in the left posterior ethmoidal air cell. Mild mucosal thickening in the right posterior ethmoidal air cell. Mastoid air cells: Visualized mastoids are normal. No mastoid effusion. Soft tissues: Unremarkable. IMPRESSION: 1. No intracranial aneurysm visualized. 2. No stenosis or occlusion in the arteries of the zeqhie-xb-Uyzhmi. 3. No acute intracranial abnormalities. Right common carotid artery: No stenosis. No dissection or occlusion. Right internal carotid artery: No stenosis of the extracranial segment. No dissection or occlusion. Right external carotid artery: No occlusion or stenosis of the origin. Left common carotid artery: No stenosis. No dissection or occlusion. Left internal carotid artery: No stenosis of the extracranial segment. No dissection or occlusion. Left external carotid artery: No occlusion or stenosis of the origin. Right vertebral artery: No stenosis. No dissection or occlusion. Left vertebral artery: No stenosis. No dissection or occlusion. Left vertebral artery is dominant. Soft tissues: Normal. No significant soft tissue swelling. Bones/joints: No acute fracture. Lungs: There are paraseptal emphysematous changes in the bilateral apical lungs. IMPRESSION: No stenosis or occlusion. REFERENCES: NASCET CRITERIA. The degree of stenosis in the cervical segment of the internal carotid artery is based on NASCET criteria. Normal is no stenosis. Mild is less than 50% stenosis. Moderate is 50- 69% stenosis. Severe is 70% to 99% stenosis. Total occlusion is no detectable patent lumen. Thank you for allowing us to participate in the care of your patient. Dictated and Authenticated by: Phani Petersen DO 02/08/2025 5:16 AM Eastern Time ([place] & [place]) Quality:SDOH Health Related Social Needs: No Data to Display PFSH All Active Problems (Updated 02/08/25 @ 07:14 by Niranjan Willams DO) Headache (Acute) Muscle spasms of neck (Acute) Left lateral epicondylitis (Acute) Dupuytren's contracture of right hand (Acute) Right ring finger Nodule right thumb Dupuytren's contracture of left hand (Acute) Left little finger Left ring finger Discharge planning issues (Acute) Chest pain (Acute) Bilateral carpal tunnel syndrome (Acute) Left ECTR DOS: 10/07/2019 Right ECTR DOS: 10/14/2019 Panic disorder (Acute) Medical History (Updated 02/08/25 @ 07:14 by Niranjan Willams DO) Preventative health care Obesity Asymptomatic varicose veins of unspecified lower extremity Alcohol abuse, uncomplicated pt. 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 F/U with Dr. Fontana @ [facility] per pt states < 1 yr ago Family History Father Cancer Agent orange exposure Heart disease Multiple MIs, at age 50 Mother Cancer COPD (chronic obstructive pulmonary disease) Social History Smoking/Tobacco Use Status: Former Tobacco Use Quit Date: 11/22/03 Smoking risk assessment performed?: Yes Alcohol Intake: current Alcohol Intake frequency: 0-2 drinks per day Alcohol type: beer Drug use: Never Substance use type: does not use Housing: house current occupation: [employer] employee Do you feel safe at home: Yes Do you feel safe in your relationship?: Yes PAWSS Have you Been Recently Intoxicated or Drunk Within the Last 30 days?: No Have you Ever Experienced Previous Episodes of Alcohol Withdrawal?: No Have you ever Experienced Withdrawal Seizures?: No Have you ever Experienced Delirium Tremens(DT)s?: No Have you ever undergone Alcohol Rehabilitation Treatment (i.e, inpt ot outpatient treatment programs)?: No Have you ever Experienced Blackouts?: No Have you ever Combined Alcohol with other Downers within the last 90 days?: No Have you ever Combined Alcohol with any other Substance of Abuse during the last 90 days?: No Positive Blood Alcohol level on Presentation? [PCS.BAL]: No Evidence of Increased Autonomic Activity (i.e. HR>120, tremor, sweating, agitation, nausea)?: No Result: 0
[2025-02-08] MEDS: diphenhydrAMINE 50 MG/ML VIAL 25 MG IVP (03:40)
[2025-02-08] MEDS: Prochlorperazine 10 MG/2 ML VIAL 5 MG IVP (03:41)
[2025-02-08] MEDS: ACETAMINOPHEN 1,000 MG/100 ML BAG 400 MG IVPB (03:44)
[2025-02-08 03:49] LABS: Abs Immature Grans 0.05 10^3/uL (0.0-0.06); Absolute Basophil Count 0.05 10^3/uL (0.0-0.2); Absolute Eosinophil Count 0.33 10^3/uL (0.0-0.7); Absolute Lymphocyte Count 2.22 10^3/uL (1.2-3.4); Absolute Monocyte Count 0.87 10^3/uL (0.1-0.8); Absolute Neutrophil Count 4.13 10^3/uL (1.2-6.7); Basophils % 0.7 %; Eosinophils % 4.3 %; HCT 43.7 % (40.0-50.0); HGB 15.1 g/dL (13.5-17.5); Immature Grans % 0.7 %; MCH 31.7 pg (27.0-33.0); MCHC 34.6 % (32.0-36.0); MCV 92 fL (80-95); Monocytes % 11.4 %; Neutrophils % 53.9 %; Platelet Count 173 10^3/uL (130-400); RBC 4.77 10^6/uL (4.36-5.78); RDW 11.9 % (11.8-14.1); WBC 7.65 10^3/uL (4.4-10.8)
[2025-02-08 03:59] LABS: ALT 71 U/L (16-63); AST 36 U/L (15-37); Albumin 3.8 g/dL (3.4-5.0); Alkaline Phosphatase 67 U/L (46-116); Anion Gap 6.1 mmol/L (3-11); BUN 11 mg/dL (7-18); Bilirubin, Total 0.8 mg/dL (0.2-1.0); CO2 29.9 mmol/L (21.0-32.0); CREATININE 0.8 mg/dL (0.70-1.30); Chloride 105 mmol/L (98-107); Estimated GFR 107.15 (mL/min/1.73m2); Glucose 113 mg/dL (74-106); PTT Activated 22.9 sec (20.6-30.2); Potassium 4.3 mmol/L (3.5-5.1); Prothrombin Time 10.4 sec (9.1-11.1); Sodium 141 mmol/L (136-145); Total Protein 6.7 g/dL (6.4-8.2)
[2025-02-08 04:16] LABS: Procalcitonin < 0.10 ng/mL
[2025-02-08] MEDS: Normal Saline - Diluent 50 ML VIAL IJ (04:36)
[2025-02-08] MEDS: Omnipaque 350 MG/ML 100 ML BTL 70 ML IJ (04:36)
--- NOTE | 2025-02-08 04:36 | DI.CT_ITS ---
Exam(s) CT BRAIN NECK CTA EXAM: CT BRAIN NECK CTA CLINICAL HISTORY: posterior HUYNH, neck pain, eval aneurysm/bleed. TECHNIQUE: Imaging Protocol: Axial CT angiography was performed with multi-slice acquisition and mu lti-planar and/or 3D reconstructions. CONTRAST MATERIAL: Intravenous: Omnipaque 350 Contrast volume:70 COMPARISON: No exams were available for comparison FINDINGS: CTA Neck W: Aortic arch anatomy: There is no significant stenosis at the origin the great vessels off the aortic arch. No intimal flap evident. Anterior circulation: Both common carotid arteries ascend with normal luminal diameters. At the level the carotid bulbs and proximal internal carotid arteries there is minimal plaque without hemodynamically significant stenosis evident. There is minimal partially calcified lateral plaque in the left carotid bulb with approximately 10 pe rcent stenosis. No significant plaque on the right side. No stenosis evident in the proximal internal carotid arteries nor in the internal carotid arteries in the upper neck and skull base-carotid canal s. Posterior circulation: Both vertebral arteries originate in conventional fashion off of the subclavian arteries and there is no obvious stenosis at the origin of the vertebral arteries. Both vertebral arteries exhibit normal luminal diameters within the foramen transversarium. The left vertebral artery is dominant. Both vertebral arteries contribute to the formation of the basilar artery at the skull base. CTA Brain W: Anterior circulation: Both internal carotid arteries are patent in the skull base-carotid canals as well as within the cave rnous sinuses. The supraclinoid aspects of the ICAs are patent. Both A1 segments are patent as are the anterior cer ebral arteries and there is no evidence of aneurysm at the level of the anterior communicating artery . Both middle cerebral arteries are patent with no evidence of significant stenosis nor intraluminal th rombus. There also no aneurysms of these vessels. Posterior circulation: The basilar artery ascends in the midline. Distally it gives off patent bilateral superior cerebella r arteries. Above this level the basilar artery terminates as patent bilateral posterior cerebral arteries. There is no evidence of aneurysm at the tip of the basilar artery nor elsewhere in the [id number] is. CT BRAIN: There is no evidence of intracranial hemorrhage, mass effect, or shift of midline structures. There are no extra-axial fluid collections. Ventricles are not enlarged or shifted. There are no ring enh ancing lesions in the brain and no abnormal meningeal enhancement. Some mucosal thickening is noted in the sphenoid sinuses and ethmoidal air cells. Also the right fron toethmoidal recess. Frontal sinuses are clear. Mastoid air cells are clear. IMPRESSION: 1. Patent carotid arteries in the neck. No hemodynamically significant stenosis. 2. Patent vertebral arteries. 3. Patent intracranial arteries. No significant stenosis. No aneurysms. 4. No significant intracranial findings. RADIATION DOSE DELIVERED: 2,082.03mGy.cm Total DLP DATA REPOSITORY: All CT scans at this facility are submitted to the National Radiology Data Registry (NRDR) Dose Index Registry (DIR) with the [employer] (ACR). RADIATION OPTIMIZATION: All CT scans at this facility use at least one of these dose optimization te chniques: automated exposure control; mA and/or kV adjustment per patient size (includes targeted exa ms where dose is matched to clinical indication); or iterative reconstruction.
--- NOTE | 2025-02-08 05:16 | DI.VRAD_ITS ---
PROCEDURE INFORMATION: Exam: CTA Head Without And With Contrast, Arteriography Exam date and time: 02/08/2025 3:47 AM Age: 49 years old Clinical indication: Headache and other: Neck pain; Posterior HUYNH, neck pain, eval aneurysm/bleed TECHNIQUE: Imaging protocol: Computed tomographic angiography of the head without and with contrast. Exam focused on the arteries. 3D rendering (Not supervised by radiologist): MIP and/or 3D reconstructed images were created by the technologist. Radiation optimization: All CT scans at this facility use at least one of these dose optimization techniques: automated exposure control; mA and/or kV adjustment per patient size (includes targeted exams where dose is matched to clinical indication); or iterative reconstruction. Contrast material: [id number]; Contrast volume: 70 ml; Contrast route: INTRAVENOUS (IV); COMPARISON: No relevant prior studies available. FINDINGS: ANTERIOR CIRCULATION: Right internal carotid artery: Intracranial segment is patent with no significant stenosis or occlusion. No aneurysm. Right middle cerebral artery: No occlusion or significant stenosis. No aneurysm. Right anterior cerebral artery: No occlusion or significant stenosis. No aneurysm. Left internal carotid artery: Intracranial segment is patent with no significant stenosis. No aneurysm. Left middle cerebral artery: No occlusion or significant stenosis. No aneurysm. Left anterior cerebral artery: No occlusion or significant stenosis. No aneurysm. POSTERIOR CIRCULATION: Right vertebral artery: No occlusion or significant stenosis. No aneurysm. Left vertebral artery: No occlusion or significant stenosis. No aneurysm. Basilar artery: No occlusion or significant stenosis. No aneurysm. Right posterior cerebral artery: No occlusion or significant stenosis. No aneurysm. Left posterior cerebral artery: No occlusion or significant stenosis. No aneurysm. HEAD: Brain: Normal. No hemorrhage. Unremarkable white matter. No mass effect. Cerebral ventricles: Normal. No ventriculomegaly. Bones: Unremarkable. No acute fracture. Paranasal sinuses: Mild mucosal thickening in the right frontal sinus, bilateral anterior ethmoidal air cells. Mild mucosal thickening in the bilateral sphenoidal sinuses. Small retention cyst in the left posterior ethmoidal air cell. Mild mucosal thickening in the right posterior ethmoidal air cell. Mastoid air cells: Visualized mastoids are normal. No mastoid effusion. Soft tissues: Unremarkable. IMPRESSION: 1. No intracranial aneurysm visualized. 2. No stenosis or occlusion in the arteries of the eotiua-jv-Lopy[place]. 3. No acute intracranial abnormalities. PROCEDURE INFORMATION: Exam: CTA Neck Without And With Contrast Exam date and time: 02/08/2025 3:47 AM Age: 49 years old Clinical indication: Headache and other: Neck pain; Posterior HUYNH, neck pain, eval aneurysm/bleed TECHNIQUE: Imaging protocol: Computed tomographic angiography of the neck without and with contrast. Exam focused on the cervical segments of the vasculature. 3D rendering (Not supervised by radiologist): MIP and/or 3D reconstructed images were created by the technologist. Radiation optimization: All CT scans at this facility use at least one of these dose optimization techniques: automated exposure control; mA and/or kV adjustment per patient size (includes targeted exams where dose is matched to clinical indication); or iterative reconstruction. Contrast material: [id number]; Contrast volume: 70 ml; Contrast route: INTRAVENOUS (IV); COMPARISON: CR XR PORTABLE CHEST AP 07/19/2022 3:04 AM FINDINGS: Right common carotid artery: No stenosis. No dissection or occlusion. Right internal carotid artery: No stenosis of the extracranial segment. No dissection or occlusion. Right external carotid artery: No occlusion or stenosis of the origin. Left common carotid artery: No stenosis. No dissection or occlusion. Left internal carotid artery: No stenosis of the extracranial segment. No dissection or occlusion. Left external carotid artery: No occlusion or stenosis of the origin. Right vertebral artery: No stenosis. No dissection or occlusion. Left vertebral artery: No stenosis. No dissection or occlusion. Left vertebral artery is dominant. Soft tissues: Normal. No significant soft tissue swelling. Bones/joints: No acute fracture. Lungs: There are paraseptal emphysematous changes in the bilateral apical lungs. IMPRESSION: No stenosis or occlusion. REFERENCES: NASCET CRITERIA. The degree of stenosis in the cervical segment of the internal carotid artery is based on NASCET criteria. Normal is no stenosis. Mild is less than 50% stenosis. Moderate is 50-69% stenosis. Severe is 70% to 99% stenosis. Total occlusion is no detectable patent lumen. Dictated and Authenticated by: Phani Petersen MD. Orderin Екатерина Ureña MD
[2025-02-08] MEDS: Ketorolac 15 MG/ML VIAL IVP (06:16)
[2025-02-08] MEDS: Lidocaine 5% Patch 1 PATCH TP (06:18)
[2025-02-08 06:38] LABS: Glucose (CSF) 66 mg/dL (40-70); Total Protein (CSF) 45 mg/dL (15-45)
[2025-02-08 07:07] LABS: Tube # 4
[2025-02-08 07:08] LABS: Clarity Clear
[2025-02-08 07:11] LABS: WBC 3 /uL (0-5)
[2025-02-08 07:12] LABS: RBC 13 /mm3 (0-5)
[2025-02-08 07:33] LABS: Xanthochromia Absent
[2025-02-08 07:36] LABS: RBC Tube#1 CSF 111 /mm3 (0-5)
[2025-02-09 17:49] LABS: HSV 1 DNA Result Negative (Negative); HSV 2 DNA Result Negative (Negative)
== END 2025-02-08 08:01 | disposition home or self-care (01) ==
PROVIDERS: Emergency Provider Student in an Organized Health Care Education/Training Program; PCP Nurse Practitioner Family
DX: M51.9 Unspecified thoracic, thoracolumbar and lumbosacral intervertebral disc disorder (principal); R11.0 Nausea; M62.838 Other muscle spasm; Z79.82 Long term (current) use of aspirin; Z95.5 Presence of coronary angioplasty implant and graft; Z87.891 Personal history of nicotine dependence
CPT/HCPCS: 62270; 70496; 70498; 80053; 82945; 84145; 87529; 89050; 89051; 96361; 96365; 96374; 96375; 96376; 99285; 83605; 84157; 85025; 85610; 85730; 87070; 87205; J0131; J0780; J1200; J1885; J3360; J3490

== ENCOUNTER 2025-03-20 11:42 | Emergency (ER) | payer BC, SELFPAY ==
[2025-03-20] VITALS (22 sets, daily range): BP systolic 139–157; BP diastolic 81–98; PULSE 71–90; RESP 11–22; TEMP 36.8; O2SAT 93–99
--- NOTE | 2025-03-20 11:45 | RT.EKG_ITS ---
APPROVED REPORT Exam: Resting ECG Reason for Exam: dizziness Patient Location: E HR:81 bpm ECG Measurements Heart Rate 81 AXIS NC 178 P 14 QRSd 149 QRS 27 QT 396 T 189 QTc 462 Conclusion Sinus rhythm...normal P axis, V-rate 60- 99 Left bundle branch block...QRSd>120, broad/notched R ST elevation secondary to IVCD...Multiple VCG criteria No Occlusion [place]
--- NOTE | 2025-03-20 11:54 | W.ED.GENAD ---
Discharge Plan Disposition Patient Disposition: Home Discharge Details Clinical Impression: Lightheadedness Primary Care Provider: Tsering Manzo ED Provider: Moncho Joseph Home Meds and New Rx's Prescriptions: Continued aspirin [Adult Aspirin Regimen] 81 mg tablet,delayed release (DR/EC) 81 mg PO DAILY clonazepam 0.5 mg tablet 0.5 mg PO DAILY PRN PRN sertraline 100 MG tablet 100 mg PO QPM lisinopril 20 mg Tablet 20 mg PO DAILY lidocaine [Lidoderm] 5 % adhesive patch,medicated 1 patch Topical Q24H Qty: 15 0RF Wegovy 0.5 mg/0.5 mL pen injector 0.5 mg SUBCUT Q7D Patient Comments: INJECT 0.5MG UNDER THE SKIN ONCE WEEKLY atorvastatin 40 mg Tablet 40 mg PO QPM metoprolol succinate 50 mg Tablet Extended Release 24 Hr 50 mg PO DAILY prednisolone acetate 1 % Drops,Suspension 1 drp ophthalmic (eye) BID PRN Rx Instructions: L eye nitroglycerin 0.4 mg Tablet, Sublingual 0.4 mg SUBLINGUAL Q5M PRN Discharge Instructions Additional Instructions: You were seen in the emergency department for your lightheadedness. Your potassium was initially elevated but normalized. Please follow-up with your primary care provider. Please discuss whether or not taking lisinopril is beneficial for you as this may cause your potassium level to be high. Your blood work showed no sign of any damage to your heart. Discharge Data Discharge Date/Time-TO BE ENTERED AT DEPARTURE: 03/20/25 14:34 HPI General Date/Time Provider Initiated Documentation: 03/20/25 11:54. HPI Narrative: MDM This is an overall very well-appearing normothermic and not tachycardic 49-year-old male with history of coronary artery disease and pre-syncope concerning for the possibility of ACS. Patient has mild ST segment elevation in aVL with an upgoing QRS. He does not complain of chest pain however will repeat twelve-lead ECG. No trauma to chest to suggest pneumothorax. No history of recent emesis to suggest increased risk for esophageal rupture. No rash to chest to suggest zoster. Patient is neurologically intact so I am not suspicious for CVA and I do not feel the patient would be a candidate for lytics or thrombectomy. No history of fevers to suggest pneumonia however will obtain chest x-ray. No tonic-clonic activity to suggest seizure. No tongue biting or loss of bowel or bladder control so I do not feel the patient requires a lumbar puncture. Patient is not hypotensive nor a dialysis patient so my suspicion is low for tamponade. No black nor bloody stools to suggest GI bleed. No history of aortic stenosis to suggest critical . NH within normal limits so not suspicious for WPW. I considered PE however the patient is not short of breath so I did not order a D-dimer. No lower extremity edema no shortness of breath so doubt CHF. No nystagmus to suggest posterior circulation CVA. In the setting of syncope I considered: High risk features: 1. Age of the patient (elderly a greatest risk) 2. Syncope during exertion 3. Family history of sudden [place] syncope rule: 1. History of CHF 2. Hematocrit < 30 3. EKG abnormalities 4. Present shortness of breath 5. Systolic blood pressure less than 90 Cardiac arrhythmia/EKG or abnormalities considered: 1. ACS: No ST changes 2. Tachy-rich: No blocks 3. WPW: No delta wave 4. Brugada: No RSR'; R-bundle appearance 5. HCM: No LVH; needle Qs/ T-wave inversions 6. Short/ Long QT: 300 < QTc < 500; no family hx 7. Arrhythmogenic Right Ventricular Dysplasia: No epsilon wave, no inverted Ts in anterior precordium 03/21 Late charting due to patient care. Patient had a reassuring evaluation in the ED. He had two unremarkable troponins w/a reassuring delta. He vitals remained w/in nml limits save for his very mild HTN. He felt improved and had not dysrthmias on telemetry. We discussed that he should return for chest pain, nausea, vomiting, black or bloody stool, syncope or fevers. He understood his return indications and was discharged w/an empiric trial of expectant outpatient management. [Diagnostic interpretations performed by me: Per my independent interpretation EKG shows: Sinus rhythm at a rate of 81 with left bundle branch block. Very mild ST segment submillimeter elevation with upward going with QRS complex in aVL. Repeat ECG w/out dynamic changes. HPI The patient presents for evaluation of lightheadedness. He experienced a sudden onset of dizziness while at work, accompanied by a sensation of heart fluttering and a feeling of impending faintness. This episode, which lasted between 3 to 5 minutes, was characterized by a woodward of blood to the head, jennifer to the sensation experienced when standing on one's head. He did not experience any chest pain during this episode. Currently, he reports feeling significantly better. He is experiencing a mild headache but reports no abdominal pain or shortness of breath. He has full mobility and did not lose consciousness during the episode. There were no associated symptoms such as tongue biting or loss of bowel or bladder control. He felt normal upon waking up this morning but reports a general feeling of unwellness since Monday. He also reports no cough, runny nose, vomiting, or fever. He is currently on Wegovy injections, which he administers on Mondays, and notes that it typically results in mild stomach discomfort the following day. He has a known history of anxiety and panic disorder. He has CAD and a stent from 2019. Exam General: Well-appearing in no acute distress speaking in complete sentences. Head: Normocephalic, atraumatic. Eye: Extraocular eye movements intact. No conjunctival injection. No scleral icterus. Ear, nose, mouth, throat: Grossly normal inspection. Normal voice, handling secretions normally. Neck: Trachea midline. Cardiovascular: Well-perfused distal extremities. Regular rate and rhythm. Respiratory: Nonlabored respiration. Clear lungs bilaterally. Gastrointestinal: Nondistended abdomen. Soft nontender. Musculoskeletal: No no significant lower extremity pitting edema. Moving all 4 extremities spontaneously. Skin: Normal for age and race, grossly normal temperature and turgor. No acute rash. Neurologic: Alert and appropriate, no apparent acute deficits. GCS 15. No nystagmus. Psychiatric: Mood and manner are appropriate. Grooming and personal hygiene are appropriate. Related Data Home Medications ?Medication ?Instructions ?Recorded ?Confirmed sertraline 100 mg tablet 100 mg PO QPM 12/02/17 03/20/25 clonazepam 0.5 mg tablet 0.5 mg PO DAILY PRN PRN 12/20/18 03/20/25 aspirin 81 mg tablet,delayed 81 mg PO DAILY 09/24/19 03/20/25 release (Adult Aspirin Regimen) atorvastatin 40 mg tablet 40 mg PO QPM 10/01/19 03/20/25 metoprolol succinate 50 mg 50 mg PO DAILY 10/01/19 03/20/25 tablet,extended release 24 hr nitroglycerin 0.4 mg sublingual 0.4 mg sublingual Q5M PRN 10/01/19 03/20/25 tablet prednisolone acetate 1 % eye 1 drp ophthalmic (eye) BID PRN 10/01/19 03/20/25 drops,suspension lisinopril 20 mg tablet 20 mg PO DAILY 07/19/22 03/20/25 lidocaine 5 % topical patch 1 patch topical Q24H #15 ea 02/08/25 03/20/25 (Lidoderm) semaglutide (weight loss) 0.5 0.5 mg subcut Q7D 03/20/25 03/20/25 mg/0.5 mL subcutaneous pen injector (Wegovy) Previous Rx's ?Medication ?Instructions ?Recorded lidocaine 5 % topical patch 1 patch topical Q24H #15 ea 02/08/25 (Lidoderm) Allergies Allergy/AdvReac Type Severity Reaction Status Date / Time No Known Allergies Allergy Verified 03/20/25 11:50 General Stated Complaint: Dizzy/Sync FLYNN: 3 Course Vital Signs Vital signs: Vital Signs Temperature 36.8 C 03/20/25 11:44 Pulse 80 03/20/25 11:44 Respiratory Rate 20 03/20/25 11:44 Blood Pressure 145/94 H 03/20/25 11:44 Pulse Oximetry 95 03/20/25 11:44 Temperature 36.8 C 03/20/25 11:44 Temperature Source Oral 03/20/25 11:44 Pulse 80 03/20/25 11:44 Respiratory Rate 20 03/20/25 11:44 Blood Pressure 145/94 H 03/20/25 11:44 Blood Pressure Position Sitting 03/20/25 11:44 Pulse Oximetry 95 03/20/25 11:44 Oxygen Delivery Method Room Air 03/20/25 11:44 Oxygen Flow Rate 0 03/20/25 11:44 Medical Decision Making Quality:SDOH Health Related Social Needs: No Data to Display PFSH All Active Problems (Updated 03/20/25 @ 14:27 by Moncho Joseph MD) Lightheadedness (Acute) Left lateral epicondylitis (Acute) Dupuytren's contracture of right hand (Acute) Right ring finger Nodule right thumb Dupuytren's contracture of left hand (Acute) Left little finger Left ring finger Discharge planning issues (Acute) Chest pain (Acute) Bilateral carpal tunnel syndrome (Acute) Left ECTR DOS: 10/07/2019 Right ECTR DOS: 10/14/2019 Panic disorder (Acute) Medical History (Updated 03/20/25 @ 14:27 by Moncho Joseph MD) Preventative health care Obesity Asymptomatic varicose veins of unspecified lower extremity Alcohol abuse, uncomplicated pt. 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 F/U with Dr. Fontana @ [facility] per pt states < 1 yr ago Family History Father Cancer Agent orange exposure Heart disease Multiple MIs, at age 50 Mother Cancer COPD (chronic obstructive pulmonary disease) Social History Smoking/Tobacco Use Status: Former Tobacco Use Quit Date: 11/22/03 Smoking risk assessment performed?: Yes Alcohol Intake: current Alcohol Intake frequency: 0-2 drinks per day Alcohol type: beer Drug use: Never Substance use type: does not use Housing: house current occupation: [employer] employee Do you feel safe at home: Yes Do you feel safe in your relationship?: Yes PAWSS Have you Been Recently Intoxicated or Drunk Within the Last 30 days?: No Have you Ever Experienced Previous Episodes of Alcohol Withdrawal?: No Have you ever Experienced Withdrawal Seizures?: No Have you ever Experienced Delirium Tremens(DT)s?: No Have you ever undergone Alcohol Rehabilitation Treatment (i.e, inpt ot outpatient treatment programs)?: No Have you ever Experienced Blackouts?: No Have you ever Combined Alcohol with other Downers within the last 90 days?: No Have you ever Combined Alcohol with any other Substance of Abuse during the last 90 days?: No Positive Blood Alcohol level on Presentation? [PCS.BAL]: No Evidence of Increased Autonomic Activity (i.e. HR>120, tremor, sweating, agitation, nausea)?: No Result: 0
--- NOTE | 2025-03-20 12:00 | DI.RAD_ITS ---
Exam(s) XR PORTABLE CHEST AP EXAM: XR PORTABLE CHEST AP CLINICAL HISTORY: Chest pain. TECHNIQUE: 2D digital imaging was performed. COMPARISON: CR,XR XR PORTABLE CHEST AP from 07/19/2022 FINDINGS: Single AP portable view. Heart size is upper normal. The mediastinum is not widened. Lungs are clear. No infiltrates nor obvious pleural effusions. IMPRESSION: No acute pulmonary findings on this single AP portable view of the chest. DATA REPOSITORY: RADIATION DOSE DELIVERED:
--- NOTE | 2025-03-20 12:00 | RT.EKG_ITS ---
APPROVED REPORT Exam: Resting ECG Reason for Exam: chest pain, repeat ekg Patient Location: E HR:75 bpm ECG Measurements Heart Rate 75 AXIS [place] 185 P 27 QRSd 151 QRS 30 QT 436 T 214 QTc 487 Conclusion Sinus rhythm...normal P axis, V-rate 60- 99 Left bundle branch block...QRSd>120, broad/notched R ST elevation secondary to IVCD...Multiple VCG criteria No Occlusion [place]
[2025-03-20] MEDS: Aspirin 81 MG CHEW 324 MG CH (12:18)
[2025-03-20 12:38] LABS: Abs Immature Grans 0.01 10^3/uL (0.0-0.06); Absolute Basophil Count 0.05 10^3/uL (0.0-0.2); Absolute Eosinophil Count 0.26 10^3/uL (0.0-0.7); Absolute Lymphocyte Count 1.92 10^3/uL (1.2-3.4); Absolute Neutrophil Count 3.82 10^3/uL (1.2-6.7); Basophils % 0.8 %; HCT 43.7 % (40.0-50.0); HGB 15.2 g/dL (13.5-17.5); Immature Grans % 0.2 %; Lymphocytes % 29.3 %; MCH 31.5 pg (27.0-33.0); MCHC 34.8 % (32.0-36.0); MCV 91 fL (80-95); MPV 9.5 fL (8.0-11.0); Monocytes % 7.6 %; Neutrophils % 58.1 %; Platelet Count 171 10^3/uL (130-400); RBC 4.82 10^6/uL (4.36-5.78); RDW 11.9 % (11.8-14.1); RDW-SD 39.2 fL; WBC 6.56 10^3/uL (4.4-10.8)
[2025-03-20 13:00] LABS: Anion Gap 8.1 mmol/L (3-11); BUN 16 mg/dL (7-18); CO2 26.9 mmol/L (21.0-32.0); CREATININE 0.5 mg/dL (0.70-1.30); Calcium 9.3 mg/dL (8.5-10.1); Chloride 101 mmol/L (98-107); Estimated GFR 123.49 (mL/min/1.73m2); Glucose 84 mg/dL (74-106); Potassium 5.6 mmol/L (3.5-5.1); Sodium 136 mmol/L (136-145); Troponin I 7 ng/L (<or=76)
[2025-03-20] MEDS: Normal Saline 500 ML 1000 ML IV (13:17)
[2025-03-20] MEDS: Normal Saline 50 ML 400 ML (13:31)
[2025-03-20] MEDS: Calcium Gluconate 4.65 MEQ/10 ML VIAL 4.65 MG IVP (13:31)
[2025-03-20 14:04] LABS: Anion Gap 9.2 mmol/L (3-11); BUN 15 mg/dL (7-18); CO2 26.8 mmol/L (21.0-32.0); CREATININE 0.5 mg/dL (0.70-1.30); Calcium 9.2 mg/dL (8.5-10.1); Chloride 102 mmol/L (98-107); Estimated GFR 123.49 (mL/min/1.73m2); Glucose 88 mg/dL (74-106); Potassium 4.2 mmol/L (3.5-5.1); Sodium 138 mmol/L (136-145)
[2025-03-20 14:05] LABS: Troponin I 7 ng/L (<or=76)
== END 2025-03-20 14:34 | disposition home or self-care (01) ==
PROVIDERS: Emergency Provider Emergency Medicine; PCP Nurse Practitioner Family
DX: R55 Syncope and collapse (principal); F41.9 Anxiety disorder, unspecified; I10 Essential (primary) hypertension; I25.10 Atherosclerotic heart disease of native coronary artery without angina pectoris; I44.4 Left anterior fascicular block; Z79.82 Long term (current) use of aspirin; Z79.899 Other long term (current) drug therapy; Z87.891 Personal history of nicotine dependence
CPT/HCPCS: 36415; 80048; 93005; 96361; 96374; 99284; 71045; 84484; 85025; 93010; J0612

== ENCOUNTER 2025-04-22 16:17 | Outpatient (REF) | payer BC, SELFPAY ==
[2025-04-22 16:52] LABS: ALT 52 U/L (16-63); AST 29 U/L (15-37); Albumin 4.2 g/dL (3.4-5.0); Alkaline Phosphatase 83 U/L (46-116); Anion Gap 7.5 mmol/L (3-11); BUN 15 mg/dL (7-18); Bilirubin, Total 1.1 mg/dL (0.2-1.0); CO2 28.5 mmol/L (21.0-32.0); Calcium 9.3 mg/dL (8.5-10.1); Chloride 102 mmol/L (98-107); Estimated GFR 111.56 (mL/min/1.73m2); Glucose 96 mg/dL (74-106); Potassium 4.4 mmol/L (3.5-5.1); Sodium 138 mmol/L (136-145); Total Protein 6.8 g/dL (6.4-8.2)
== END 2025-04-22 16:18 | disposition home or self-care (01) ==
LOC: NCHCN 16:17
PROVIDERS: PCP Nurse Practitioner Family; Visit Provider Nurse Practitioner Family
DX: E87.5 Hyperkalemia (principal)
CPT/HCPCS: 80053

== ENCOUNTER 2025-08-05 18:10 | Outpatient (REF) | payer BC, SELFPAY ==
[2025-08-05 21:14] LABS: Iron 111 ug/dL (65-175); Total Iron Binding Capacity 249 ug/dL (250-450); Transferrin Sat 45 % (20-55)
[2025-08-05 21:41] LABS: ALT 37 U/L (16-63); AST 17 U/L (15-37); Albumin 4.1 g/dL (3.4-5.0); Alkaline Phosphatase 71 U/L (46-116); Anion Gap 8.7 mmol/L (3-11); BUN 16 mg/dL (7-18); Bilirubin, Total 0.9 mg/dL (0.2-1.0); CO2 28.3 mmol/L (21.0-32.0); Calcium 8.9 mg/dL (8.5-10.1); Chloride 102 mmol/L (98-107); Estimated GFR 103.40 (mL/min/1.73m2); Glucose 91 mg/dL (74-106); Potassium 4.3 mmol/L (3.5-5.1); Sodium 139 mmol/L (136-145); TSH (W/Ref FT4) 0.80 uIU/mL (0.36-3.74); Total Protein 6.9 g/dL (6.4-8.2); Vitamin B12 351 pg/mL (193-986)
== END 2025-08-05 18:11 | disposition home or self-care (01) ==
LOC: NCHCN 18:10
PROVIDERS: PCP Nurse Practitioner Family; Visit Provider Nurse Practitioner Family
DX: R25.1 Tremor, unspecified (principal); G25.81 Restless legs syndrome; G62.9 Polyneuropathy, unspecified
CPT/HCPCS: 80053; 82607; 83540; 83550; 84443